=== PATIENT | male | born 1975 | race Caucasian/White ===

== ENCOUNTER 2016-08-10 14:21 | Inpatient (IN) | payer OTHER ==
[2016-08-10 14:46] VITALS: BMI 29.5
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
[2016-08-10] MEDS ORDERED: MAGNESIUM CITRATE 300 ML BOTTLE PO PRN (15:57)
[2016-08-10] MEDS ORDERED: LOPERAMIDE HCL 2 MG CAPSULE PO PRN (15:57)
[2016-08-10] MEDS ORDERED: P-EPHED 60MG/TRIPROLIDI 2.5MG TABLET PO PRN (15:57)
[2016-08-10] MEDS ORDERED: MAGNESIUM HYDROX 2400MG/30ML ORAL SUSPENSION 30 ML CUP PO PRN (15:57)
[2016-08-10] MEDS ORDERED: hydrOXYzine PAMOATE 50 MG CAPSULE (FP) PO PRN (15:57)
[2016-08-10] MEDS ORDERED: NICOTINE POLACRILEX 2 MG GUM BC PRN (15:57)
[2016-08-10] MEDS ORDERED: chlordiazePOXIDE HCL 25 MG CAPSULE PO ONE (15:57)
[2016-08-10] MEDS ORDERED: MENTHOL/PHENOL 1 EACH UD MM PRN (15:57)
[2016-08-10] MEDS ORDERED: guaiFENesin/D-METHORPHAN HB 10 ML UNIT-DOSE CUPS PO PRN (15:57)
[2016-08-10] MEDS ORDERED: chlordiazePOXIDE HCL 25 MG CAPSULE PO PRN (15:57)
[2016-08-10] MEDS ORDERED: ACETAMINOPHEN 325 MG TABLET (FP) PO PRN (15:57)
[2016-08-10] MEDS ORDERED: MAG HYDROX/AL HYDROX/SIMETH 30 ML UNIT-DOSE CUP PO PRN (15:57)
[2016-08-10] MEDS ORDERED: ALBUTEROL SO4 6.7 GM HFA INHALER IH PRN (16:02)
[2016-08-10] MEDS: NIFEdipine E.R. 30 MG TABLET (FP) PO SCH (18:13)
[2016-08-10] MEDS: chlordiazePOXIDE HCL 25 MG CAPSULE PO SCH ×2 (18:13→22:47)
[2016-08-10] MEDS: NICOTINE 21 MG/24 HOURS TOPICAL PATCH TD SCH (18:14)
[2016-08-10] MEDS: RANITIDINE HCL 150 MG TABLET (FP) PO SCH (22:47)
[2016-08-10] MEDS: THIAMINE HCL 100 MG TABLET (FP) PO SCH (22:47)
[2016-08-10] MEDS: diphenhydrAMINE HCL 50 MG CAPSULE PO PRN (22:47)
[2016-08-11] MEDS: chlordiazePOXIDE HCL 25 MG CAPSULE PO SCH ×4 (05:50→22:20)
[2016-08-11] MEDS: PRENATAL VITAMINS W/ FOLIC ACID TABLET (FP) PO SCH (10:13)
[2016-08-11] MEDS: NIFEdipine E.R. 30 MG TABLET (FP) PO SCH (10:13)
[2016-08-11] MEDS: RANITIDINE HCL 150 MG TABLET (FP) PO SCH ×2 (10:13→22:20)
[2016-08-11 10:14] LABS: MCH 31.8 pg (25.7-33.7); MCHC 33.6 g/dl (32.0-35.9); MEAN CELL VOLUME 94.7 fl (80-96); MEAN PLT VOLUME 9.6 fl (7.5-11.1); PLATELET COUNT 278 K/MM3 (134-434); RDW 14.6 % (11.9-15.9); WHITE BLOOD COUNT 6.2 K/mm3 (4.0-10.0)
[2016-08-11] MEDS: NICOTINE 21 MG/24 HOURS TOPICAL PATCH TD SCH (10:14)
[2016-08-11 10:37] LABS: ALBUMIN 3.7 g/dl (3.4-5.0); ALK PHOS 41 U/L (45-117); ANION GAP 10 (8-16); BILIRUBIN,TOTAL 0.3 mg/dL (0.2-1.0); CALCIUM 9.1 mg/dL (8.5-10.1); CO2 26 mmol/L (21-32); CREATININE 0.9 mg/dL (0.7-1.3); GLUCOSE,RANDOM 77 mg/dL (74-106); SGOT/AST 12 U/L (15-37); SGPT/ALT 12 U/L (12-78); TOT PROT 6.6 g/dl (6.4-8.2)
--- NOTE | 2016-08-11 14:27 | PN ---
S CIWA - CIWA Score Nausea/Vomitin Muscle Tremors: 4-Moderate,w/Arms Extend Anxiety: 4-Mod. Anxious/Guarded Agitation: 4-Moderately Restless Paroxysmal Sweats: No Perspiration Orientation: 0-Oriented Tacttile Disturbances: 0-None Auditory Disturbances: 0-None Visual Disturbances: 0-None Headache: 2-Mild CIWA-Ar Total Score: 17 BHS Progress Note (SOAP) Subjective: Tremor, sweating, interrupted sleep, anxious, nausea Objective: 08/11/16 14:26 Last Vital Signs Temp Pulse Resp BP Pulse Ox 95.4 F L 84 18 112/71 08/11/16 09:24 08/11/16 09:24 08/11/16 09:24 08/11/16 09:24 Laboratory Tests 08/11/16 08/11/16 08/11/16 07:50 07:50 07:50 WBC 6.2 RBC 4.75 Hgb 15.1 Hct 44.9 MCV 94.7 MCHC 33.6 RDW 14.6 Plt Count 278 MPV 9.6 Sodium 143 Potassium 4.4 Chloride 107 Carbon Dioxide 26 Anion Gap 10 BUN 9 Creatinine 0.9 Creat Clearance w eGFR > 60 Random Glucose 77 Calcium 9.1 Total Bilirubin 0.3 AST 12 L ALT 12 Alkaline Phosphatase 41 L Total Protein 6.6 Albumin 3.7 RPR Titer Nonreactive Labs noted Assessment: 08/11/16 14:26 Withdrawal symptoms Plan: Continue detox
[2016-08-11] MEDS: diphenhydrAMINE HCL 50 MG CAPSULE PO PRN (22:20)
[2016-08-11] MEDS: THIAMINE HCL 100 MG TABLET (FP) PO SCH (22:20)
[2016-08-11 23:53] LABS: URINE APPEARANCE TURBID; URINE BILIRUBIN NEGATIVE (NEGATIVE); URINE BLOOD NEGATIVE (NEGATIVE); URINE COLOR YELLOW; URINE GLUCOSE (UA) NEGATIVE (NEGATIVE); URINE KETONE NEGATIVE (NEGATIVE); URINE LEUK ESTERASE NEGATIVE (NEGATIVE); URINE NITRITE NEGATIVE (NEGATIVE); URINE PROTEIN NEGATIVE (NEGATIVE); URINE UROBILINOGEN NEGATIVE E.U./dl (0.2-1.0)
[2016-08-12] MEDS: chlordiazePOXIDE HCL 25 MG CAPSULE PO SCH ×2 (05:50→10:28)
[2016-08-12] MEDS: PRENATAL VITAMINS W/ FOLIC ACID TABLET (FP) PO SCH (10:28)
[2016-08-12] MEDS: NICOTINE 21 MG/24 HOURS TOPICAL PATCH TD SCH (10:28)
[2016-08-12] MEDS: NIFEdipine E.R. 30 MG TABLET (FP) PO SCH (10:28)
[2016-08-12] MEDS: RANITIDINE HCL 150 MG TABLET (FP) PO SCH ×2 (10:28→22:33)
--- NOTE | 2016-08-12 10:36 | PN ---
S CIWA - CIWA Score Nausea/Vomitin-No Nausea/No Vomiting Muscle Tremors: 4-Moderate,w/Arms Extend Anxiety: 4-Mod. Anxious/Guarded Agitation: 3 Paroxysmal Sweats: 3 Orientation: 0-Oriented Tacttile Disturbances: 0-None Auditory Disturbances: 0-None Visual Disturbances: 0-None Headache: 0-None Present CIWA-Ar Total Score: 14 BHS Progress Note (SOAP) Subjective: Anxiety,tremorsd,sweating,interrupted sleep,restless Objective: 08/12/16 10:35 Vital Signs - 8 hr 08/12/16 08/12/16 08/12/16 03:29 06:22 10:08 Temperature 97.4 F L 95.8 F L Pulse Rate 78 86 Respiratory 18 16 20 Rate Blood Pressure 110/79 115/80 Laboratory Tests 08/11/16 08/11/16 08/11/16 07:50 07:50 07:50 WBC 6.2 RBC 4.75 Hgb 15.1 Hct 44.9 MCV 94.7 MCHC 33.6 RDW 14.6 Plt Count 278 MPV 9.6 Sodium 143 Potassium 4.4 Chloride 107 Carbon Dioxide 26 Anion Gap 10 BUN 9 Creatinine 0.9 Creat Clearance w eGFR > 60 Random Glucose 77 Calcium 9.1 Total Bilirubin 0.3 AST 12 L ALT 12 Alkaline Phosphatase 41 L Total Protein 6.6 Albumin 3.7 Urine Color Urine Appearance Urine pH Ur Specific [place] Urine Protein Urine Glucose (UA) Urine Ketones Urine Blood Urine Nitrite Urine Bilirubin Urine Urobilinogen Ur Leukocyte Esterase RPR Titer Nonreactive 08/11/16 22:15 WBC RBC Hgb Hct MCV MCHC RDW Plt Count MPV Sodium Potassium Chloride Carbon Dioxide Anion Gap BUN Creatinine Creat Clearance w eGFR Random Glucose Calcium Total Bilirubin AST ALT Alkaline Phosphatase Total Protein Albumin Urine Color Yellow Urine Appearance Turbid Urine pH 7.0 Ur Specific [place] 1.014 Urine Protein Negative Urine Glucose (UA) Negative Urine Ketones Negative Urine Blood Negative Urine Nitrite Negative Urine Bilirubin Negative Urine Urobilinogen Negative Ur Leukocyte Esterase Negative RPR Titer labs noted Assessment: 08/12/16 10:35 withdrawal sx. Plan: continue detox
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
[2016-08-12] MEDS ORDERED: HYDROCORTISONE 1% TOPICAL CREAM 30 GM TUBE TP PRN (16:12)
--- NOTE | 2016-08-12 16:15 | PN ---
BHS Progress Note Note: C/O ITCHY RASH ON CORNERS OF NOSE AND EYEBROW HYDROCORTIZONE CREAM 1% APPLY BID PRN
--- NOTE | 2016-08-12 16:22 | EKG ---
Test Reason : Blood Pressure : / mmHG Vent. Rate : 080 BPM Atrial Rate : 080 BPM P-R Int : 130 ms QRS Dur : 092 ms QT Int : 410 ms P-R-T Axes : 065 070 050 degrees QTc Int : 472 ms NORMAL SINUS RHYTHM POSSIBLE LEFT ATRIAL ENLARGEMENT BORDERLINE ECG NO PREVIOUS ECGS AVAILABLE Confirmed by LAUREEN MORA, SIERRA ([id number]) on 08/12/2016 4:22:04 PM Referred By: Confirmed By:SIERRA GARDUNO MD
[2016-08-12] MEDS: chlordiazePOXIDE 5 MG CAPSULE PO SCH ×2 (17:31→23:02)
[2016-08-12] MEDS: IBUPROFEN 400 MG TABLET (FP) PO PRN (19:42)
[2016-08-12] MEDS: THIAMINE HCL 100 MG TABLET (FP) PO SCH (22:33)
[2016-08-12] MEDS: QUEtiapine FUMARATE 100 MG TABLET (FP) PO SCH (22:33)
[2016-08-12] MEDS: DIVALPROEX SODIUM 250 MG TABLET E.C. (FP) PO SCH (22:33)
[2016-08-12] MEDS: OLANZapine 10 MG TABLET PO SCH (22:33)
[2016-08-13] MEDS: chlordiazePOXIDE 5 MG CAPSULE PO SCH ×2 (06:02→10:41)
[2016-08-13] MEDS: PRENATAL VITAMINS W/ FOLIC ACID TABLET (FP) PO SCH (10:41)
[2016-08-13] MEDS: DIVALPROEX SODIUM 250 MG TABLET E.C. (FP) PO SCH ×2 (10:41→22:42)
[2016-08-13] MEDS: RANITIDINE HCL 150 MG TABLET (FP) PO SCH ×2 (10:41→22:42)
[2016-08-13] MEDS: NICOTINE 21 MG/24 HOURS TOPICAL PATCH TD SCH (10:41)
[2016-08-13] MEDS: NIFEdipine E.R. 30 MG TABLET (FP) PO SCH (10:41)
--- NOTE | 2016-08-13 11:09 | PN ---
BHS Progress Note (SOAP) Subjective: ANXIETY,SWEATS,TREMORS,INTERMITTENT SLEEP Objective: 08/13/16 11:08 Vital Signs Temperature 96 F L 08/13/16 06:30 Pulse Rate 83 08/13/16 09:48 Respiratory Rate 18 08/13/16 09:48 Blood Pressure 107/73 08/13/16 09:48 O2 Sat by Pulse Oximetry (%) Assessment: 08/13/16 11:09 WITHDRAWAL SX Plan: CONTINUE DETOX
[2016-08-13] MEDS: chlordiazePOXIDE HCL 10 MG CAPSULE PO SCH ×2 (17:38→22:41)
[2016-08-13] MEDS: IBUPROFEN 400 MG TABLET (FP) PO PRN (19:25)
[2016-08-13] MEDS: THIAMINE HCL 100 MG TABLET (FP) PO SCH (22:41)
[2016-08-13] MEDS: OLANZapine 10 MG TABLET PO SCH (22:42)
[2016-08-13] MEDS: QUEtiapine FUMARATE 100 MG TABLET (FP) PO SCH (22:42)
[2016-08-14] MEDS: chlordiazePOXIDE HCL 10 MG CAPSULE PO SCH ×2 (05:59→10:26)
[2016-08-14] MEDS: PRENATAL VITAMINS W/ FOLIC ACID TABLET (FP) PO SCH (10:26)
[2016-08-14] MEDS: DIVALPROEX SODIUM 250 MG TABLET E.C. (FP) PO SCH (10:27)
[2016-08-14] MEDS: NIFEdipine E.R. 30 MG TABLET (FP) PO SCH (10:27)
[2016-08-14] MEDS: NICOTINE 21 MG/24 HOURS TOPICAL PATCH TD SCH (10:27)
[2016-08-14] MEDS: RANITIDINE HCL 150 MG TABLET (FP) PO SCH (10:27)
--- NOTE | 2016-08-14 11:56 | DS ---
[facility] Detox Discharge Summary Admission Date: 08/10/16 Discharge Date: 08/14/16 - History Present History: Alcohol Dependence, Cocaine Dependence Additional Comments: DETOX COMPLETED. ALERT O X 3. NAD. REFERRED TO REHAB. Pertinent Past History: HTN ASTHMA GERD HYPERLIPIDEMIA SCHIZOPHRENIA - Physical Exam Results Vital Signs: Vital Signs Temperature 98.6 F 08/14/16 10:08 Pulse Rate 87 08/14/16 10:08 Respiratory Rate 18 08/14/16 10:08 Blood Pressure 107/71 08/14/16 10:08 O2 Sat by Pulse Oximetry (%) Pertinent Admission Physical Exam Findings: WITHDRAWAL SX Laboratory Last Values WBC 6.2 K/mm3 (4.0-10.0) 08/11/16 07:50 RBC 4.75 M/mm3 (4.00-5.60) 08/11/16 07:50 Hgb 15.1 GM/dL (11.7-16.9) 08/11/16 07:50 Hct 44.9 % (35.4-49) 08/11/16 07:50 MCV 94.7 fl (80-96) 08/11/16 07:50 MCHC 33.6 g/dl (32.0-35.9) 08/11/16 07:50 RDW 14.6 % (11.9-15.9) 08/11/16 07:50 Plt Count 278 K/MM3 (134-434) 08/11/16 07:50 MPV 9.6 fl (7.5-11.1) 08/11/16 07:50 Sodium 143 mmol/L (136-145) 08/11/16 07:50 Potassium 4.4 mmol/L (3.5-5.1) 08/11/16 07:50 Chloride 107 mmol/L (98-107) 08/11/16 07:50 Carbon Dioxide 26 mmol/L (21-32) 08/11/16 07:50 Anion Gap 10 (8-16) 08/11/16 07:50 BUN 9 mg/dL (7-18) 08/11/16 07:50 Creatinine 0.9 mg/dL (0.7-1.3) 08/11/16 07:50 Creat Clearance w eGFR > 60 (>60) 08/11/16 07:50 Random Glucose 77 mg/dL (74-106) 08/11/16 07:50 Calcium 9.1 mg/dL (8.5-10.1) 08/11/16 07:50 Total Bilirubin 0.3 mg/dL (0.2-1.0) 08/11/16 07:50 AST 12 U/L (15-37) L 08/11/16 07:50 ALT 12 U/L (12-78) 08/11/16 07:50 Alkaline Phosphatase 41 U/L (45-117) L 08/11/16 07:50 Total Protein 6.6 g/dl (6.4-8.2) 08/11/16 07:50 Albumin 3.7 g/dl (3.4-5.0) 08/11/16 07:50 Urine Color Yellow 08/11/16 22:15 Urine Appearance Turbid 08/11/16 22:15 Urine pH 7.0 (5.0-8.0) 08/11/16 22:15 Ur Specific [place] 1.014 (1.001-1.035) 08/11/16 22:15 Urine Protein Negative (NEGATIVE) 08/11/16 22:15 Urine Glucose (UA) Negative (NEGATIVE) 08/11/16 22:15 Urine Ketones Negative (NEGATIVE) 08/11/16 22:15 Urine Blood Negative (NEGATIVE) 08/11/16 22:15 Urine Nitrite Negative (NEGATIVE) 08/11/16 22:15 Urine Bilirubin Negative (NEGATIVE) 08/11/16 22:15 Urine Urobilinogen Negative E.U./dl (0.2-1.0) 08/11/16 22:15 Ur Leukocyte Esterase Negative (NEGATIVE) 08/11/16 22:15 Valproic Acid 19.882 ug/ml (50-100) L 08/13/16 07:00 RPR Titer Nonreactive (NONREACTIVE) 08/11/16 07:50 - Treatment Hospital Course: Detox Protocol Followed, Detoxed Safely, Responded well, Discharged Condition Good, Rehab Referral Accepted Patient has Accepted a Rehab Referral to: [facility] [place] - Medication Discharge Medications: Ambulatory Orders Divalproex [Depakote -] 250 mg PO BID 08/10/16 Ibuprofen [Motrin -] 400 mg PO DAILY 08/10/16 Nifedipine [Procardia Capsule -] 20 mg PO DAILY 08/10/16 Olanzapine [Zyprexa -] 10 mg PO HS 08/10/16 Quetiapine Fumarate [Seroquel -] 400 mg PO HS 08/10/16 Ranitidine HCl [Heartburn Relief] 75 mg PO DAILY 08/10/16 - Diagnosis (1) Alcohol dependence with uncomplicated withdrawal Current Visit: Yes Status: Acute (2) Cocaine dependence, uncomplicated Current Visit: Yes Status: Acute (3) Nicotine dependence Current Visit: Yes Status: Acute Qualifiers: Nicotine product type: cigarettes Substance use status: uncomplicated Qualified Code(s): F17.210 - Nicotine dependence, cigarettes, uncomplicated (4) Asthma Current Visit: Yes Status: Chronic Qualifiers: Asthma severity: mild intermittent Asthma complication type: uncomplicated Qualified Code(s): J45.20 - Mild intermittent asthma, uncomplicated (5) GERD (gastroesophageal reflux disease) Current Visit: Yes Status: Chronic Qualifiers: Esophagitis presence: without esophagitis Qualified Code(s): K21.9 - Gastro-esophageal reflux disease without esophagitis (6) HTN (hypertension) Current Visit: Yes Status: Chronic Qualifiers: Hypertension type: essential hypertension Qualified Code(s): I10 - Essential (primary) hypertension (7) Hyperlipemia Current Visit: Yes Status: Chronic (8) Insomnia Current Visit: Yes Status: Acute (9) Substance induced mood disorder Current Visit: Yes Status: Acute (10) Schizophrenia Current Visit: Yes Status: Chronic - AMA Did Patient Leave Against Medical Advice: No
[2016-08-14 13:39] VITALS: BP 119/77; PULSE 85; TEMP 97.7
== END 2016-08-14 15:50 | disposition other institution (70) | DRG 774 ==
LOC: YASAS 14:21 → Y3N 15:27
PROVIDERS: ADMIT Internal Medicine; ATTEND Internal Medicine
PROC: HZ2ZZZZ Detoxification Services for Substance Abuse Treatment (ICD-10-PCS; principal; 2016-08-14)
DX: F10.230 Alcohol dependence with withdrawal, uncomplicated (principal); F14.20 Cocaine dependence, uncomplicated; F17.210 Nicotine dependence, cigarettes, uncomplicated; F19.24 Other psychoactive substance dependence with psychoactive substance-induced mood disorder; F20.0 Paranoid schizophrenia; G47.00 Insomnia, unspecified; E78.5 Hyperlipidemia, unspecified; I10 Essential (primary) hypertension; J45.20 Mild intermittent asthma, uncomplicated; K21.9 Gastro-esophageal reflux disease without esophagitis
CPT/HCPCS: 36415; 80053; 80164; 81003; 85027; 86593; 93005; 93010

== ENCOUNTER 2016-08-14 15:19 | Inpatient (IN) | payer OTHER ==
[2016-08-14] MEDS ORDERED: MENTHOL/PHENOL 1 EACH UD MM PRN (16:14)
[2016-08-14] MEDS ORDERED: P-EPHED 60MG/TRIPROLIDI 2.5MG TABLET PO PRN (16:14)
[2016-08-14] MEDS ORDERED: MAG HYDROX/AL HYDROX/SIMETH 30 ML UNIT-DOSE CUP PO PRN (16:14)
[2016-08-14] MEDS ORDERED: NICOTINE 14 MG/24 HOURS TOPICAL PATCH TD PRN (16:14)
[2016-08-14] MEDS ORDERED: hydrOXYzine PAMOATE 50 MG CAPSULE (FP) PO PRN (16:14)
[2016-08-14] MEDS ORDERED: MAGNESIUM HYDROX 2400MG/30ML ORAL SUSPENSION 30 ML CUP PO PRN (16:14)
[2016-08-14] MEDS ORDERED: guaiFENesin/D-METHORPHAN HB 10 ML UNIT-DOSE CUPS PO PRN (16:14)
[2016-08-14] MEDS ORDERED: NICOTINE POLACRILEX 2 MG GUM BUC PRN (16:14)
[2016-08-14] MEDS ORDERED: LOPERAMIDE HCL 2 MG CAPSULE PO PRN (16:14)
[2016-08-14] MEDS ORDERED: MAGNESIUM CITRATE 300 ML BOTTLE PO PRN (16:14)
--- NOTE | 2016-08-14 16:14 | HP ---
[facility] Rehab Assess/Revision - Admission History Admitted to Rehab from: [facility] [place] Date of Admission to Rehab: 08/14/16 - Findings Detox History & Physical reviewed: Yes Concur with findings: Yes Comments/Additional Findings: TRANSFERRED FROM DETOX TO REHAB
[2016-08-14] MEDS ORDERED: ALBUTEROL SO4 6.7 GM HFA INHALER IH PRN (16:18)
[2016-08-14 18:15] VITALS: BMI 29.5
--- NOTE | 2016-08-14 18:36 | PN ---
[facility] Progress Note Note: Psychiatry Attending-operations systems specialist note : Called by nurse in charge to enter orders for medications. Patient is already known to this physician underwriter.Transferred from [address] [place] [address]. Medications reconciled. zyprexa 10 mg po hs seroquel 200 mg po hs (from 100 mg/hs) depakote 250 mg po bid Housestaff psychiatrist will follow in AM. Discussed with nurse.
[2016-08-14] MEDS: DIVALPROEX SODIUM 250 MG TABLET E.C. (FP) PO SCH (21:52)
[2016-08-14] MEDS: THIAMINE HCL 100 MG TABLET (FP) PO SCH (21:52)
[2016-08-14] MEDS: OLANZapine 10 MG TABLET PO SCH (21:52)
[2016-08-14] MEDS: QUEtiapine FUMARATE 200 MG TABLET PO SCH (21:52)
[2016-08-14] MEDS: diphenhydrAMINE HCL 50 MG CAPSULE PO PRN (21:53)
[2016-08-15] MEDS: DIVALPROEX SODIUM 250 MG TABLET E.C. (FP) PO SCH ×2 (09:35→21:16)
[2016-08-15] MEDS: PRENATAL VITAMINS W/ FOLIC ACID TABLET (FP) PO SCH (09:35)
[2016-08-15] MEDS: NIFEdipine E.R. 30 MG TABLET (FP) PO SCH (09:36)
[2016-08-15 11:54] LABS: HIV 1 & 2 AB NEGATIVE; HIV 1 AGp24 NEGATIVE
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
[2016-08-15] MEDS: IBUPROFEN 400 MG TABLET (FP) PO PRN (15:17)
[2016-08-15] MEDS: OLANZapine 10 MG TABLET PO SCH (21:16)
[2016-08-15] MEDS: QUEtiapine FUMARATE 200 MG TABLET PO SCH (21:16)
[2016-08-15] MEDS: THIAMINE HCL 100 MG TABLET (FP) PO SCH (21:16)
[2016-08-16] MEDS: PRENATAL VITAMINS W/ FOLIC ACID TABLET (FP) PO SCH (10:24)
[2016-08-16] MEDS: IBUPROFEN 400 MG TABLET (FP) PO PRN (10:24)
[2016-08-16] MEDS: NIFEdipine E.R. 30 MG TABLET (FP) PO SCH (10:24)
[2016-08-16] MEDS: DIVALPROEX SODIUM 250 MG TABLET E.C. (FP) PO SCH ×2 (10:24→21:49)
[2016-08-16] MEDS: ACETAMINOPHEN 325 MG TABLET (FP) PO PRN (17:02)
[2016-08-16] MEDS: OLANZapine 10 MG TABLET PO SCH (21:49)
[2016-08-16] MEDS: THIAMINE HCL 100 MG TABLET (FP) PO SCH (21:49)
[2016-08-16] MEDS: QUEtiapine FUMARATE 200 MG TABLET PO SCH (21:49)
[2016-08-17] MEDS: IBUPROFEN 600 MG TABLET (FP) PO PRN (02:25)
[2016-08-17] MEDS: PRENATAL VITAMINS W/ FOLIC ACID TABLET (FP) PO SCH (10:06)
[2016-08-17] MEDS: DIVALPROEX SODIUM 250 MG TABLET E.C. (FP) PO SCH ×2 (10:06→21:21)
[2016-08-17] MEDS: NIFEdipine E.R. 30 MG TABLET (FP) PO SCH (10:06)
[2016-08-17] MEDS: ACETAMINOPHEN 325 MG TABLET (FP) PO PRN ×2 (10:07→19:47)
[2016-08-17] MEDS: THIAMINE HCL 100 MG TABLET (FP) PO SCH (21:21)
[2016-08-17] MEDS: QUEtiapine FUMARATE 200 MG TABLET PO SCH (21:21)
[2016-08-17] MEDS: OLANZapine 10 MG TABLET PO SCH (21:21)
[2016-08-17] MEDS: diphenhydrAMINE HCL 50 MG CAPSULE PO PRN (21:22)
[2016-08-18] MEDS: ACETAMINOPHEN 325 MG TABLET (FP) PO PRN ×3 (04:29→21:47)
[2016-08-18] MEDS: PRENATAL VITAMINS W/ FOLIC ACID TABLET (FP) PO SCH (10:17)
[2016-08-18] MEDS: DIVALPROEX SODIUM 250 MG TABLET E.C. (FP) PO SCH ×2 (10:17→21:48)
[2016-08-18] MEDS: NIFEdipine E.R. 30 MG TABLET (FP) PO SCH (10:17)
[2016-08-18] MEDS: QUEtiapine FUMARATE 200 MG TABLET PO SCH (21:48)
[2016-08-18] MEDS: THIAMINE HCL 100 MG TABLET (FP) PO SCH (21:48)
[2016-08-18] MEDS: diphenhydrAMINE HCL 50 MG CAPSULE PO PRN (21:48)
[2016-08-18] MEDS: OLANZapine 10 MG TABLET PO SCH (21:48)
[2016-08-19] MEDS: ACETAMINOPHEN 325 MG TABLET (FP) PO PRN ×2 (10:06→20:17)
[2016-08-19] MEDS: PRENATAL VITAMINS W/ FOLIC ACID TABLET (FP) PO SCH (10:06)
[2016-08-19] MEDS: DIVALPROEX SODIUM 250 MG TABLET E.C. (FP) PO SCH ×2 (10:06→21:23)
[2016-08-19] MEDS: NIFEdipine E.R. 30 MG TABLET (FP) PO SCH (10:06)
[2016-08-19] MEDS: THIAMINE HCL 100 MG TABLET (FP) PO SCH (21:22)
[2016-08-19] MEDS: QUEtiapine FUMARATE 200 MG TABLET PO SCH (21:22)
[2016-08-19] MEDS: OLANZapine 10 MG TABLET PO SCH (21:22)
[2016-08-19] MEDS: IBUPROFEN 600 MG TABLET (FP) PO PRN (21:22)
[2016-08-20] MEDS: PRENATAL VITAMINS W/ FOLIC ACID TABLET (FP) PO SCH (10:17)
[2016-08-20] MEDS: DIVALPROEX SODIUM 250 MG TABLET E.C. (FP) PO SCH ×2 (10:19→21:04)
[2016-08-20] MEDS: NIFEdipine E.R. 30 MG TABLET (FP) PO SCH (10:19)
[2016-08-20] MEDS: IBUPROFEN 600 MG TABLET (FP) PO PRN ×2 (10:20→21:04)
[2016-08-20] MEDS: THIAMINE HCL 100 MG TABLET (FP) PO SCH (21:04)
[2016-08-20] MEDS: OLANZapine 10 MG TABLET PO SCH (21:04)
[2016-08-20] MEDS: QUEtiapine FUMARATE 200 MG TABLET PO SCH (21:04)
[2016-08-20] MEDS: diphenhydrAMINE HCL 50 MG CAPSULE PO PRN (22:14)
[2016-08-20] MEDS: ACETAMINOPHEN 325 MG TABLET (FP) PO PRN (22:15)
[2016-08-21] MEDS: ACETAMINOPHEN 325 MG TABLET (FP) PO PRN ×2 (09:06→22:30)
[2016-08-21] MEDS: NIFEdipine E.R. 30 MG TABLET (FP) PO SCH (09:06)
[2016-08-21] MEDS: DIVALPROEX SODIUM 250 MG TABLET E.C. (FP) PO SCH ×2 (09:06→21:37)
[2016-08-21] MEDS: PRENATAL VITAMINS W/ FOLIC ACID TABLET (FP) PO SCH (09:06)
--- NOTE | 2016-08-21 14:42 | PN ---
BHS Progress Note (SOAP) Subjective: tooth ache Objective: 08/21/16 14:40 Vital Signs Temperature 97.4 F L 08/21/16 06:46 Pulse Rate 110 H 08/21/16 10:03 Respiratory Rate 18 08/21/16 10:03 Blood Pressure 128/96 08/21/16 10:03 O2 Sat by Pulse Oximetry (%) left lower molar pain , Assessment: 08/21/16 14:41 molar toothache Plan: amoxicillin 500mg tid v. lidocaine motrin prn
[2016-08-21] MEDS: THIAMINE HCL 100 MG TABLET (FP) PO SCH (21:37)
[2016-08-21] MEDS: AMOXICILLIN 500 MG CAPSULE (FP) PO SCH (21:38)
[2016-08-21] MEDS: OLANZapine 10 MG TABLET PO SCH (21:38)
[2016-08-21] MEDS: QUEtiapine FUMARATE 200 MG TABLET PO SCH (21:38)
[2016-08-21] MEDS: LIDOCAINE VISCOUS 2% ORAL/TOP 20 ML UNIT-DOSE CUP MM PRN (21:38)
[2016-08-21] MEDS: diphenhydrAMINE HCL 50 MG CAPSULE PO PRN (21:38)
[2016-08-22] MEDS: AMOXICILLIN 500 MG CAPSULE (FP) PO SCH ×3 (06:55→21:10)
[2016-08-22] MEDS: IBUPROFEN 600 MG TABLET (FP) PO PRN ×3 (07:10→21:53)
[2016-08-22] MEDS: DIVALPROEX SODIUM 250 MG TABLET E.C. (FP) PO SCH ×2 (09:55→21:10)
[2016-08-22] MEDS: PRENATAL VITAMINS W/ FOLIC ACID TABLET (FP) PO SCH (09:56)
[2016-08-22] MEDS: NIFEdipine E.R. 30 MG TABLET (FP) PO SCH (09:56)
[2016-08-22] MEDS: THIAMINE HCL 100 MG TABLET (FP) PO SCH (21:10)
[2016-08-22] MEDS: OLANZapine 10 MG TABLET PO SCH (21:10)
[2016-08-22] MEDS: QUEtiapine FUMARATE 200 MG TABLET PO SCH (21:10)
[2016-08-22] MEDS: LIDOCAINE VISCOUS 2% ORAL/TOP 20 ML UNIT-DOSE CUP MM PRN (21:12)
[2016-08-23] MEDS: AMOXICILLIN 500 MG CAPSULE (FP) PO SCH (06:50)
--- NOTE | 2016-08-23 06:58 | PN ---
Psychiatric Progress Note Vital Signs: Vital Signs Period Temp Pulse Resp BP Sys/Graham Pulse Ox Last 24 Hr 102 16-18 136/78 Date of Session: 08/23/16 Chief Complaint:: Psychiatrist Discharge Note HPI: Patient addressing Alcohol and Cocaine Dependence comorbid with Nicotine Dependence and Schizophrenia ROS: Asthma, GERD, HTN and Hyperlipidemia were medically managed Current Medications: Active Medications Generic Name Dose Route Start Last Admin Trade Name Freq PRN Reason Stop Dose Admin Acetaminophen 650 mg 08/14/16 16:14 08/21/16 22:30 Tylenol - PO 650 mg Q4H PRN Administration FEVER OR PAIN Al Hydroxide/Mg Hydroxide 30 ml 08/14/16 16:14 Mylanta Oral Suspension - PO Q6H PRN DYSPEPSIA Albuterol Sulfate 2 puff 08/14/16 16:18 Ventolin Hfa Inhaler - IH Q4H PRN SHORT OF BREATH/WHEEZING Amoxicillin 500 mg 08/21/16 22:00 08/22/16 21:10 Amoxicillin - PO 500 mg TID ZAKIA Administration Diphenhydramine HCl 50 mg 08/14/16 16:14 08/21/16 21:38 Benadryl - PO 50 mg HSMR1 PRN Administration FOR ITCHING Divalproex Sodium 250 mg 08/14/16 22:00 08/22/16 21:10 Depakote - PO 250 mg BID ZAKIA Administration Eucalyptus/Menthol/Phenol/Sorbitol 1 each 08/14/16 16:14 Cepastat Lozenge - MM Q4H PRN SORE THROAT Guaifenesin 10 ml 08/14/16 16:14 Robitussin Dm - PO Q6H PRN COUGH Hydroxyzine Pamoate 50 mg 08/14/16 16:14 Vistaril - PO Q4H PRN AGITATION Ibuprofen 600 mg 08/16/16 15:28 08/22/16 21:53 Motrin - PO 600 mg Q6H PRN Administration PAIN Lidocaine HCl 20 ml 08/21/16 14:39 08/22/16 21:12 Xylocaine 2% Viscous Oral - MM 20 ml Q6HPO PRN Administration ORAL PAIN/MOUTH SORES Loperamide HCl 4 mg 08/14/16 16:14 Imodium - PO Q6H PRN DIARRHEA Magnesium Hydroxide 30 ml 08/14/16 16:14 Milk Of Magnesia - PO DAILY PRN CONSTIPATION Nicotine 14 mg 08/14/16 16:14 Nicoderm Patch - TD DAILY PRN WITHDRAWAL(CONT SUBST) Nicotine Polacrilex 2 mg 08/14/16 16:14 Nicorette Gum - BUC Q2H PRN NICOTINE REPLACEMENT RX Nifedipine 30 mg 08/15/16 10:00 08/22/16 09:56 Procardia Xl - PO 30 mg DAILY ZAKIA Administration Olanzapine 10 mg 08/14/16 22:00 08/22/16 21:10 Zyprexa - PO 10 mg HS ZAKIA Administration Multivit/Folic Acid/Iron 1 tab 08/15/16 10:00 08/22/16 09:56 Vitamins (Sjr) - PO 1 tab DAILY ZAKIA Administration Pseudoephedrine/Triprolidine 1 combo 08/14/16 16:14 Actifed - PO TID PRN NASAL CONGESTION Quetiapine Fumarate 200 mg 08/14/16 22:00 08/22/16 21:10 Seroquel - PO 200 mg HS ZAKIA Administration Thiamine HCl 100 mg 08/14/16 22:00 08/22/16 21:10 Vitamin B1 - PO 100 mg HS ZAKIA Administration Current Side Effect: No Lab tests ordered: Yes Lab tests reviewed: Yes Provider note:: Patient has completed this program today. He has met his treatment goals and will continue to address his issues in outpatient treatment at [facility] at [address] [place] [address]. He verbalized understanding of the negative consequences of his addiction and from his participation in this program, he has learned the importance of establishing a sober network in order to maintain sobriety. He responded well to Depakote 250 mg po BID, Seroquel 200 mg po HS and Zyprexa 10 mg po HS. Scripts for 30 days supply of these medications are electronically transmitted to [facility] at [address] [place] [address]. He is stable for discharge today Total face to face time:: 35 Mental Status Exam - Mental Status Exam Alert and Oriented to: Time, Place, Person Cognitive Function: Fair Patient Appearance: Well Groomed Mood: Hopeful, Euthymic Affect: Appropriate Patient Behavior: Cooperative Speech Pattern: Clear Voice Loudness: Normal, Limited Variation Thought Disorder: Not Present Hallucinations: Denies Suicidal Ideation: Denies Homicidal Ideation: Denies Insight/Judgement: Fair Sleep: Fair Appetite: Good Muscle strength/Tone: Normal Gait/Station: Normal Psychiatric Treatment Plan - Problem List (1) Alcohol dependence Current Visit: Yes (2) Cocaine dependence Current Visit: Yes (3) Nicotine dependence Current Visit: No Qualifiers: Nicotine product type: cigarettes Substance use status: uncomplicated Qualified Code(s): F17.210 - Nicotine dependence, cigarettes, uncomplicated (4) Schizophrenia Current Visit: No Comment: Self-report. (5) Asthma Current Visit: No Qualifiers: Asthma severity: mild intermittent Asthma complication type: uncomplicated Qualified Code(s): J45.20 - Mild intermittent asthma, uncomplicated (6) GERD (gastroesophageal reflux disease) Current Visit: No Qualifiers: Esophagitis presence: without esophagitis Qualified Code(s): K21.9 - Gastro-esophageal reflux disease without esophagitis (7) HTN (hypertension) Current Visit: No Qualifiers: Hypertension type: essential hypertension Qualified Code(s): I10 - Essential (primary) hypertension (8) Hyperlipemia Current Visit: No Initial treatment plan: Patient is discharged today [facility]
[2016-08-23 07:04] VITALS: BP 106/71; PULSE 97; TEMP 98.1
[2016-08-23] MEDS: IBUPROFEN 600 MG TABLET (FP) PO PRN (07:28)
[2016-08-23] MEDS: NIFEdipine E.R. 30 MG TABLET (FP) PO SCH (09:20)
[2016-08-23] MEDS: DIVALPROEX SODIUM 250 MG TABLET E.C. (FP) PO SCH (09:20)
[2016-08-23] MEDS: PRENATAL VITAMINS W/ FOLIC ACID TABLET (FP) PO SCH (09:21)
== END 2016-08-23 09:30 | disposition home or self-care (01) | DRG 772 ==
LOC: YASAS 15:19 → Y3W 15:20
PROVIDERS: ADMIT Psychiatry & Neurology Psychiatry; ATTEND Psychiatry & Neurology Psychiatry
PROC: HZ42ZZZ Group Counseling for Substance Abuse Treatment, Cognitive-Behavioral (ICD-10-PCS; principal; 2016-08-23)
DX: F10.20 Alcohol dependence, uncomplicated (principal); F17.210 Nicotine dependence, cigarettes, uncomplicated; F20.9 Schizophrenia, unspecified; I10 Essential (primary) hypertension; J45.20 Mild intermittent asthma, uncomplicated; K21.9 Gastro-esophageal reflux disease without esophagitis; E78.5 Hyperlipidemia, unspecified
CPT/HCPCS: 36415; 87389

== ENCOUNTER 2017-02-06 10:16 | Inpatient (IN) | payer OTHER ==
[2017-02-06 11:01] VITALS: BMI 26.7
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
[2017-02-06] MEDS ORDERED: LOPERAMIDE HCL 2 MG CAPSULE PO PRN (12:07)
[2017-02-06] MEDS ORDERED: hydrOXYzine PAMOATE 25 MG CAPSULE (FP) PO PRN (12:07)
[2017-02-06] MEDS ORDERED: MENTHOL/PHENOL 1 EACH UD MM PRN (12:07)
[2017-02-06] MEDS ORDERED: MAGNESIUM HYDROX 2400MG/30ML ORAL SUSPENSION 30 ML CUP PO PRN (12:07)
[2017-02-06] MEDS ORDERED: guaiFENesin/D-METHORPHAN HB 10 ML UNIT-DOSE CUPS PO PRN (12:07)
[2017-02-06] MEDS ORDERED: chlordiazePOXIDE HCL 25 MG CAPSULE PO PRN (12:07)
[2017-02-06] MEDS ORDERED: diphenhydrAMINE HCL 50 MG CAPSULE PO PRN (12:07)
[2017-02-06] MEDS ORDERED: NICOTINE POLACRILEX 4 MG GUM BUC PRN (12:07)
[2017-02-06] MEDS ORDERED: MAGNESIUM CITRATE 300 ML BOTTLE PO PRN (12:07)
[2017-02-06] MEDS ORDERED: MAG HYDROX/AL HYDROX/SIMETH 30 ML UNIT-DOSE CUP PO PRN (12:07)
[2017-02-06] MEDS ORDERED: P-EPHED 60MG/TRIPROLIDI 2.5MG TABLET PO PRN (12:07)
[2017-02-06] MEDS ORDERED: ALBUTEROL SO4 6.7 GM HFA INHALER IH PRN (12:10)
[2017-02-06] MEDS ORDERED: chlordiazePOXIDE HCL 25 MG CAPSULE PO ONE (12:19)
[2017-02-06] MEDS: NICOTINE 21 MG/24 HOURS TOPICAL PATCH TD SCH (13:55)
[2017-02-06 14:15] LABS: MCH 30.9 pg (25.7-33.7); MCHC 33.7 g/dl (32.0-35.9); MEAN CELL VOLUME 91.6 fl (80-96); MEAN PLT VOLUME 9.2 fl (7.5-11.1); PLATELET COUNT 365 K/MM3 (134-434); RDW 14.8 % (11.9-15.9)
[2017-02-06 14:52] LABS: ALBUMIN 4.1 g/dl (3.4-5.0); ALK PHOS 54 U/L (45-117); ANION GAP 10 (8-16); BILIRUBIN,TOTAL 0.7 mg/dL (0.2-1.0); CALCIUM 10.2 mg/dL (8.5-10.1); CO2 28 mmol/L (21-32); CREATININE 0.8 mg/dL (0.7-1.3); GLUCOSE,RANDOM 64 mg/dL (74-106); SGOT/AST 16 U/L (15-37); SGPT/ALT 19 U/L (12-78); TOT PROT 7.6 g/dl (6.4-8.2)
--- NOTE | 2017-02-06 15:00 | CONSULT ---
[facility] Psychiatric Consult - Data Date of interview: 02/06/17 Admission source: [facility] Identifying data: This is 42 years old male with history of Schizophrenia, history of psychiatric hospitalizations , intoxicated with: Alcohol, Crack, Mthamphethamine, Nicotine Substance Abuse History: - Smoking Cessation. Smoking history: Current every day smoker. Have you smoked in the past 12 months: Yes. Aproximately how many cigarettes per day: 20. Hx Chewing Tobacco Use: No. Initiated information on smoking cessation: Yes. 'Breaking Loose' booklet given: 02/06/17. - Substance & Tx. History. Hx Alcohol Use: Yes (VODKA/BEER). Hx Substance Use: Yes (CRACK) . Substance Use Type: Alcohol, Cocaine. Hx Substance Use Treatment: Yes (LAST TX AT [facility]/REHAB). - Substances Abused. Crack. Route: Smoking. Frequency: 3-6 times per week. Amount used: $60. Age of first use: 14. Date of Last Use: 02/05/17. Alcohol-vodka/beer. Route: Oral. Frequency: Daily. Amount used: 3 pts./2-6 pks. Age of first use: 13. 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 Reports taking prior to admission: Seroquel 50mg poqd, 500mg pop qhs. Remeron 30mg po qhs Physical/Sexual Abuse/Trauma History: Denies Additional Comment: Seroquel 50mg poqd, 500mg pop qhs. Remeron 30mg po qhs Mental Status Exam - Mental Status Exam Alert and Oriented to: Person Cognitive Function: Fair Patient Appearance: Well Groomed Mood: Suspicious Affect: Constricted Patient Behavior: Cooperative Speech Pattern: Appropriate Voice Loudness: Normal Thought Process: Goal Oriented Thought Disorder: Being Controlled Hallucinations: Denies Suicidal Ideation: Denies Homicidal Ideation: Denies Insight/Judgement: Fair Sleep: Difficulty falling asleep Appetite: Weight gain Muscle strength/Tone: Normal Gait/Station: Normal Additional Comments: Seroquel 50mg poqd, 500mg pop qhs. Remeron 30mg po qhs Psychiatric Findings - Problem List ([place] 1, 2,3) (1) Alcohol dependence with uncomplicated withdrawal Current Visit: Yes Status: Acute (2) Cocaine dependence, uncomplicated Current Visit: Yes Status: Acute (3) Nicotine dependence Current Visit: Yes Status: Acute Qualifiers: Nicotine product type: cigarettes Substance use status: in withdrawal Qualified Code(s): F17.213 - Nicotine dependence, cigarettes, with withdrawal (4) Alcohol dependence Current Visit: No Status: Acute (5) Cocaine dependence Current Visit: No Status: Acute (6) Substance induced mood disorder Current Visit: No Status: Acute (7) Schizophrenia Current Visit: No Status: Chronic Comment: Self-report. - Initial Treatment Plan Initial Treatment Plan: Seroquel 50mg poqd, 400mg pop qhs. Remeron 30mg po qhs
[2017-02-06 15:06] LABS: HIV 1 & 2 AB NEGATIVE; HIV 1 AGp24 NEGATIVE
[2017-02-06 15:54] LABS: URINE APPEARANCE CLEAR; URINE BILIRUBIN NEGATIVE (NEGATIVE); URINE BLOOD NEGATIVE (NEGATIVE); URINE COLOR LTYELLOW; URINE GLUCOSE (UA) NEGATIVE (NEGATIVE); URINE KETONE NEGATIVE (NEGATIVE); URINE LEUK ESTERASE NEGATIVE (NEGATIVE); URINE NITRITE NEGATIVE (NEGATIVE); URINE PROTEIN NEGATIVE (NEGATIVE); URINE UROBILINOGEN NEGATIVE mg/dL (0.2-1.0)
[2017-02-06] MEDS: chlordiazePOXIDE HCL 25 MG CAPSULE PO SCH ×2 (20:20→22:23)
[2017-02-06] MEDS ORDERED: QUEtiapine FUMARATE 50 MG TABLET PO SCH (22:00)
[2017-02-06] MEDS: THIAMINE HCL 100 MG TABLET (FP) PO SCH (22:23)
[2017-02-06] MEDS: MIRTAZAPINE 30 MG TABLET (FP) PO SCH (22:23)
[2017-02-06] MEDS: RANITIDINE HCL 150 MG TABLET (FP) PO SCH (22:23)
[2017-02-06] MEDS: QUEtiapine FUMARATE 400 MG TABLET PO SCH (22:23)
[2017-02-07] MEDS: chlordiazePOXIDE HCL 25 MG CAPSULE PO SCH ×4 (05:17→22:18)
--- NOTE | 2017-02-07 09:39 | EKG ---
Test Reason : Blood Pressure : / mmHG Vent. Rate : 093 BPM Atrial Rate : 093 BPM P-R Int : 112 ms QRS Dur : 080 ms QT Int : 376 ms P-R-T Axes : 074 073 060 degrees QTc Int : 467 ms NORMAL SINUS RHYTHM NONSPECIFIC ST ABNORMALITY WHEN COMPARED WITH ECG OF 10-AUG-2016 18:29, NO SIGNIFICANT CHANGE WAS FOUND Confirmed by STEPHON BEYER MD ([id number]) on 02/07/2017 9:38:19 AM Referred By: Confirmed By:STEPHON BEYER MD
[2017-02-07] MEDS: ASPIRIN 81 MG CHEWABLE TABLETS PO SCH (10:17)
[2017-02-07] MEDS: PRENATAL VITAMINS W/ FOLIC ACID TABLET (FP) PO SCH (10:17)
[2017-02-07] MEDS: NICOTINE 21 MG/24 HOURS TOPICAL PATCH TD SCH (10:18)
[2017-02-07] MEDS: QUEtiapine FUMARATE 50 MG TABLET PO SCH (10:18)
[2017-02-07] MEDS: NIFEdipine E.R 60 MG TABLET (UD) PO SCH (10:18)
[2017-02-07] MEDS: RANITIDINE HCL 150 MG TABLET (FP) PO SCH ×2 (10:18→22:18)
--- NOTE | 2017-02-07 10:26 | PN ---
S CIWA - CIWA Score Nausea/Vomitin-Mild Nausea/No Vomiting Muscle Tremors: 4-Moderate,w/Arms Extend Anxiety: 4-Mod. Anxious/Guarded Agitation: 4-Moderately Restless Paroxysmal Sweats: 3 Orientation: 0-Oriented Tacttile Disturbances: 0-None Auditory Disturbances: 0-None Visual Disturbances: 0-None Headache: 0-None Present CIWA-Ar Total Score: 16 BHS Progress Note (SOAP) Subjective: nausea irritable agitation anxiety interrupted sleep Objective: 02/07/17 10:25 Vital Signs Temperature 97.7 F 02/07/17 10:19 Pulse Rate 84 02/07/17 10:19 Respiratory Rate 16 02/07/17 10:19 Blood Pressure 107/80 02/07/17 10:19 O2 Sat by Pulse Oximetry (%) Laboratory Tests 02/06/17 02/06/17 02/06/17 12:00 12:00 12:00 WBC 9.0 D RBC 4.99 Hgb 15.4 Hct 45.7 MCV 91.6 MCH 30.9 MCHC 33.7 RDW 14.8 Plt Count 365 D MPV 9.2 Sodium 140 Potassium 4.0 Chloride 102 Carbon Dioxide 28 Anion Gap 10 BUN 4 L D Creatinine 0.8 Creat Clearance w eGFR > 60 Random Glucose 64 L Calcium 10.2 H Total Bilirubin 0.7 D AST 16 D ALT 19 D Alkaline Phosphatase 54 D Total Protein 7.6 Albumin 4.1 Urine Color Urine Appearance Urine pH Ur Specific [place] Urine Protein Urine Glucose (UA) Urine Ketones Urine Blood Urine Nitrite Urine Bilirubin Urine Urobilinogen Ur Leukocyte Esterase HIV 1&2 Antibody Screen Negative HIV P24 Antigen Negative 02/06/17 14:00 WBC RBC Hgb Hct MCV MCH MCHC RDW Plt Count MPV Sodium Potassium Chloride Carbon Dioxide Anion Gap BUN Creatinine Creat Clearance w eGFR Random Glucose Calcium Total Bilirubin AST ALT Alkaline Phosphatase Total Protein Albumin Urine Color Ltyellow Urine Appearance Clear Urine pH 7.0 Ur Specific [place] 1.010 Urine Protein Negative Urine Glucose (UA) Negative Urine Ketones Negative Urine Blood Negative Urine Nitrite Negative Urine Bilirubin Negative Urine Urobilinogen Negative Ur Leukocyte Esterase Negative HIV 1&2 Antibody Screen HIV P24 Antigen awake/alert ambulating no acute distress Assessment: 02/07/17 10:26 withdrawal sx Plan: continue detox zofran SL prn increase fluids
[2017-02-07] MEDS: ONDANSETRON *ODT* 4 MG TABLET SL PRN (15:15)
[2017-02-07] MEDS: MIRTAZAPINE 30 MG TABLET (FP) PO SCH (22:18)
[2017-02-07] MEDS: QUEtiapine FUMARATE 400 MG TABLET PO SCH (22:18)
[2017-02-07] MEDS: THIAMINE HCL 100 MG TABLET (FP) PO SCH (22:18)
[2017-02-08] MEDS: chlordiazePOXIDE HCL 25 MG CAPSULE PO SCH ×2 (05:22→10:07)
[2017-02-08] MEDS: PRENATAL VITAMINS W/ FOLIC ACID TABLET (FP) PO SCH (10:06)
[2017-02-08] MEDS: RANITIDINE HCL 150 MG TABLET (FP) PO SCH ×2 (10:07→22:18)
[2017-02-08] MEDS: ASPIRIN 81 MG CHEWABLE TABLETS PO SCH (10:07)
[2017-02-08] MEDS: QUEtiapine FUMARATE 50 MG TABLET PO SCH (10:07)
[2017-02-08] MEDS: NICOTINE 21 MG/24 HOURS TOPICAL PATCH TD SCH (10:08)
[2017-02-08] MEDS: NIFEdipine E.R 60 MG TABLET (UD) PO SCH (10:08)
--- NOTE | 2017-02-08 10:20 | PN ---
S CIWA - CIWA Score Nausea/Vomitin Muscle Tremors: 3 Anxiety: 4-Mod. Anxious/Guarded Agitation: 3 Paroxysmal Sweats: 3 Orientation: 0-Oriented Tacttile Disturbances: 0-None Auditory Disturbances: 0-None Visual Disturbances: 0-None Headache: 0-None Present CIWA-Ar Total Score: 15 S Progress Note (SOAP) Subjective: Anxiety,tremors,nausea,sweating,interrupted sleep,restless. Objective: 02/08/17: Vital Signs - 8 hr 02/08/17 02/08/17 02/08/17 03:30 06:00 10:00 Temperature 97.9 F 97.9 F Pulse Rate 88 101 H Respiratory 18 18 18 Rate Blood Pressure 106/63 114/76 Laboratory Last Values WBC 9.0 K/mm3 (4.0-10.0) D 02/06/17 12:00 RBC 4.99 M/mm3 (4.00-5.60) 02/06/17 12:00 Hgb 15.4 GM/dL (11.7-16.9) 02/06/17 12:00 Hct 45.7 % (35.4-49) 02/06/17 12:00 MCV 91.6 fl (80-96) 02/06/17 12:00 MCH 30.9 pg (25.7-33.7) 02/06/17 12:00 MCHC 33.7 g/dl (32.0-35.9) 02/06/17 12:00 RDW 14.8 % (11.9-15.9) 02/06/17 12:00 Plt Count 365 K/MM3 (134-434) D 02/06/17 12:00 MPV 9.2 fl (7.5-11.1) 02/06/17 12:00 Sodium 140 mmol/L (136-145) 02/06/17 12:00 Potassium 4.0 mmol/L (3.5-5.1) 02/06/17 12:00 Chloride 102 mmol/L (98-107) 02/06/17 12:00 Carbon Dioxide 28 mmol/L (21-32) 02/06/17 12:00 Anion Gap 10 (8-16) 02/06/17 12:00 BUN 4 mg/dL (7-18) L D 02/06/17 12:00 Creatinine 0.8 mg/dL (0.7-1.3) 02/06/17 12:00 Creat Clearance w eGFR > 60 (>60) 02/06/17 12:00 Random Glucose 64 mg/dL (74-106) L 02/06/17 12:00 Calcium 10.2 mg/dL (8.5-10.1) H 02/06/17 12:00 Total Bilirubin 0.7 mg/dL (0.2-1.0) D 02/06/17 12:00 AST 16 U/L (15-37) D 02/06/17 12:00 ALT 19 U/L (12-78) D 02/06/17 12:00 Alkaline Phosphatase 54 U/L (45-117) D 02/06/17 12:00 Total Protein 7.6 g/dl (6.4-8.2) 02/06/17 12:00 Albumin 4.1 g/dl (3.4-5.0) 02/06/17 12:00 Urine Color Ltyellow 02/06/17 14:00 Urine Appearance Clear 02/06/17 14:00 Urine pH 7.0 (5.0-8.0) 02/06/17 14:00 Ur Specific [place] 1.010 (1.005-1.025) 02/06/17 14:00 Urine Protein Negative (NEGATIVE) 02/06/17 14:00 Urine Glucose (UA) Negative (NEGATIVE) 02/06/17 14:00 Urine Ketones Negative (NEGATIVE) 02/06/17 14:00 Urine Blood Negative (NEGATIVE) 02/06/17 14:00 Urine Nitrite Negative (NEGATIVE) 02/06/17 14:00 Urine Bilirubin Negative (NEGATIVE) 02/06/17 14:00 Urine Urobilinogen Negative mg/dL (0.2-1.0) 02/06/17 14:00 Ur Leukocyte Esterase Negative (NEGATIVE) 02/06/17 14:00 RPR Titer Nonreactive (NONREACTIVE) 02/06/17 12:00 HIV 1&2 Antibody Screen Negative 02/06/17 12:00 HIV P24 Antigen Negative 02/06/17 12:00 labs noted Assessment: 02/08/17 10:18 Withdrawal sx. Plan: Continue detox
[2017-02-08] MEDS: IBUPROFEN 400 MG TABLET (FP) PO PRN ×2 (16:07→22:18)
[2017-02-08] MEDS: chlordiazePOXIDE 5 MG CAPSULE PO SCH ×2 (17:24→22:18)
[2017-02-08] MEDS: QUEtiapine FUMARATE 400 MG TABLET PO SCH (22:18)
[2017-02-08] MEDS: THIAMINE HCL 100 MG TABLET (FP) PO SCH (22:18)
[2017-02-08] MEDS: MIRTAZAPINE 30 MG TABLET (FP) PO SCH (22:18)
[2017-02-08] MEDS: ACETAMINOPHEN 325 MG TABLET (FP) PO PRN (23:27)
[2017-02-09] MEDS: chlordiazePOXIDE 5 MG CAPSULE PO SCH ×2 (06:13→10:12)
[2017-02-09] MEDS: ASPIRIN 81 MG CHEWABLE TABLETS PO SCH (10:11)
[2017-02-09] MEDS: PRENATAL VITAMINS W/ FOLIC ACID TABLET (FP) PO SCH (10:11)
[2017-02-09] MEDS: NIFEdipine E.R 60 MG TABLET (UD) PO SCH (10:12)
[2017-02-09] MEDS: ONDANSETRON *ODT* 4 MG TABLET SL PRN (10:12)
[2017-02-09] MEDS: NICOTINE 21 MG/24 HOURS TOPICAL PATCH TD SCH (10:12)
[2017-02-09] MEDS: RANITIDINE HCL 150 MG TABLET (FP) PO SCH ×2 (10:12→22:47)
[2017-02-09] MEDS: QUEtiapine FUMARATE 50 MG TABLET PO SCH (10:14)
[2017-02-09] MEDS: IBUPROFEN 400 MG TABLET (FP) PO PRN ×2 (12:52→22:08)
--- NOTE | 2017-02-09 17:03 | PN ---
BHS Progress Note (SOAP) Subjective: Sweating,interrupted sleep,restless Objective: 02/09/17 17:02 Vital Signs - 8 hr 02/09/17 02/09/17 10:00 14:36 Temperature 97.9 F 98.4 F Pulse Rate 105 H 105 H Respiratory 16 16 Rate Blood Pressure 113/75 148/77 Laboratory Last Values WBC 9.0 K/mm3 (4.0-10.0) D 02/06/17 12:00 RBC 4.99 M/mm3 (4.00-5.60) 02/06/17 12:00 Hgb 15.4 GM/dL (11.7-16.9) 02/06/17 12:00 Hct 45.7 % (35.4-49) 02/06/17 12:00 MCV 91.6 fl (80-96) 02/06/17 12:00 MCH 30.9 pg (25.7-33.7) 02/06/17 12:00 MCHC 33.7 g/dl (32.0-35.9) 02/06/17 12:00 RDW 14.8 % (11.9-15.9) 02/06/17 12:00 Plt Count 365 K/MM3 (134-434) D 02/06/17 12:00 MPV 9.2 fl (7.5-11.1) 02/06/17 12:00 Sodium 140 mmol/L (136-145) 02/06/17 12:00 Potassium 4.0 mmol/L (3.5-5.1) 02/06/17 12:00 Chloride 102 mmol/L (98-107) 02/06/17 12:00 Carbon Dioxide 28 mmol/L (21-32) 02/06/17 12:00 Anion Gap 10 (8-16) 02/06/17 12:00 BUN 4 mg/dL (7-18) L D 02/06/17 12:00 Creatinine 0.8 mg/dL (0.7-1.3) 02/06/17 12:00 Creat Clearance w eGFR > 60 (>60) 02/06/17 12:00 Random Glucose 64 mg/dL (74-106) L 02/06/17 12:00 Calcium 10.2 mg/dL (8.5-10.1) H 02/06/17 12:00 Total Bilirubin 0.7 mg/dL (0.2-1.0) D 02/06/17 12:00 AST 16 U/L (15-37) D 02/06/17 12:00 ALT 19 U/L (12-78) D 02/06/17 12:00 Alkaline Phosphatase 54 U/L (45-117) D 02/06/17 12:00 Total Protein 7.6 g/dl (6.4-8.2) 02/06/17 12:00 Albumin 4.1 g/dl (3.4-5.0) 02/06/17 12:00 Urine Color Ltyellow 02/06/17 14:00 Urine Appearance Clear 02/06/17 14:00 Urine pH 7.0 (5.0-8.0) 02/06/17 14:00 Ur Specific [place] 1.010 (1.005-1.025) 02/06/17 14:00 Urine Protein Negative (NEGATIVE) 02/06/17 14:00 Urine Glucose (UA) Negative (NEGATIVE) 02/06/17 14:00 Urine Ketones Negative (NEGATIVE) 02/06/17 14:00 Urine Blood Negative (NEGATIVE) 02/06/17 14:00 Urine Nitrite Negative (NEGATIVE) 02/06/17 14:00 Urine Bilirubin Negative (NEGATIVE) 02/06/17 14:00 Urine Urobilinogen Negative mg/dL (0.2-1.0) 02/06/17 14:00 Ur Leukocyte Esterase Negative (NEGATIVE) 02/06/17 14:00 RPR Titer Nonreactive (NONREACTIVE) 02/06/17 12:00 HIV 1&2 Antibody Screen Negative 02/06/17 12:00 HIV P24 Antigen Negative 02/06/17 12:00 labs noted Assessment: 02/09/17 17:03 Withdrawal sx. Plan: Continue detox
[2017-02-09] MEDS: chlordiazePOXIDE HCL 10 MG CAPSULE PO SCH ×2 (17:40→22:08)
[2017-02-09] MEDS: ACETAMINOPHEN 325 MG TABLET (FP) PO PRN (19:52)
[2017-02-09] MEDS: MIRTAZAPINE 30 MG TABLET (FP) PO SCH (22:08)
[2017-02-09] MEDS: THIAMINE HCL 100 MG TABLET (FP) PO SCH (22:08)
[2017-02-09] MEDS: QUEtiapine FUMARATE 400 MG TABLET PO SCH (22:47)
[2017-02-10] MEDS: chlordiazePOXIDE HCL 10 MG CAPSULE PO SCH ×2 (05:20→10:06)
--- NOTE | 2017-02-10 08:58 | DS ---
[facility] Detox Discharge Summary Admission Date: 02/06/17 Discharge Date: 02/10/17 - History Present History: Alcohol Dependence, Cocaine Dependence - Physical Exam Results Vital Signs: Vital Signs Temperature 97.5 F L 02/10/17 06:00 Pulse Rate 101 H 02/10/17 06:00 Respiratory Rate 18 02/10/17 06:00 Blood Pressure 120/80 02/10/17 06:00 O2 Sat by Pulse Oximetry (%) - Treatment Hospital Course: Detox Protocol Followed, Detoxed Safely, Responded well, Discharged Condition Good, Rehab Referral Accepted - Medication Discharge Medications: Ambulatory Orders Albuterol Sulfate Inhaler - [Ventolin Hfa Inhaler -] 2 inh PO Q4H PRN 02/06/17 Aspirin [ASA -] 81 mg PO DAILY 02/06/17 Fluticasone Propionate [Flovent Diskus] 0 mcg IH BID 02/06/17 Ibuprofen [Motrin -] 600 mg PO Q6H PRN 02/06/17 Mirtazapine [Remeron -] 30 mg PO HS #30 tablet 02/06/17 Nifedipine [Procardia Xl] 60 mg PO DAILY 02/06/17 [place]-3 Fatty Acids/Fish Oil [Fish Oil 1,000 mg Softgel] 1 each PO DAILY Quetiapine Fumarate [Seroquel -] 50 mg PO AM 02/06/17 Quetiapine Fumarate [Seroquel -] 50 mg PO DAILY #30 tablet 02/06/17 Quetiapine Fumarate [Seroquel -] 400 mg PO HS #30 tab 02/06/17 Quetiapine Fumarate [Seroquel] 500 mg PO HS 02/06/17 Ranitidine HCl [Zantac] 150 mg PO BID 02/06/17 - Diagnosis (1) Alcohol dependence with uncomplicated withdrawal Current Visit: Yes Status: Chronic (2) Cocaine dependence, uncomplicated Current Visit: Yes Status: Chronic (3) Nicotine dependence Current Visit: Yes Status: Chronic Qualifiers: Nicotine product type: cigarettes Substance use status: uncomplicated Qualified Code(s): F17.210 - Nicotine dependence, cigarettes, uncomplicated (4) Asthma Current Visit: Yes Status: Chronic Qualifiers: Asthma severity: mild intermittent Asthma complication type: uncomplicated Qualified Code(s): J45.20 - Mild intermittent asthma, uncomplicated (5) GERD (gastroesophageal reflux disease) Current Visit: Yes Status: Chronic Qualifiers: Esophagitis presence: without esophagitis Qualified Code(s): K21.9 - Gastro-esophageal reflux disease without esophagitis (6) HTN (hypertension) Current Visit: Yes Status: Chronic Qualifiers: Hypertension type: essential hypertension Qualified Code(s): I10 - Essential (primary) hypertension (7) Hypercholesterolemia Current Visit: Yes Status: Chronic (8) Insomnia Current Visit: No Status: Acute (9) Substance induced mood disorder Current Visit: No Status: Acute (10) Schizophrenia Current Visit: No Status: Chronic - AMA Did Patient Leave Against Medical Advice: No
[2017-02-10] MEDS: PRENATAL VITAMINS W/ FOLIC ACID TABLET (FP) PO SCH (10:06)
[2017-02-10] MEDS: ASPIRIN 81 MG CHEWABLE TABLETS PO SCH (10:06)
[2017-02-10] MEDS: NICOTINE 21 MG/24 HOURS TOPICAL PATCH TD SCH (10:07)
[2017-02-10] MEDS: QUEtiapine FUMARATE 50 MG TABLET PO SCH (10:07)
[2017-02-10] MEDS: RANITIDINE HCL 150 MG TABLET (FP) PO SCH (10:07)
[2017-02-10] MEDS: NIFEdipine E.R 60 MG TABLET (UD) PO SCH (10:07)
[2017-02-10] MEDS: IBUPROFEN 400 MG TABLET (FP) PO PRN (10:09)
[2017-02-10 10:15] VITALS: BP 141/97; PULSE 115; TEMP 97.2
== END 2017-02-10 12:47 | disposition home or self-care (01) | DRG 774 ==
LOC: YASAS 10:16 → Y6N 12:11
PROVIDERS: ADMIT Internal Medicine; ATTEND Internal Medicine
PROC: HZ2ZZZZ Detoxification Services for Substance Abuse Treatment (ICD-10-PCS; principal; 2017-02-06)
DX: F10.230 Alcohol dependence with withdrawal, uncomplicated (principal); F14.20 Cocaine dependence, uncomplicated; F17.210 Nicotine dependence, cigarettes, uncomplicated; F20.9 Schizophrenia, unspecified; F19.24 Other psychoactive substance dependence with psychoactive substance-induced mood disorder; R00.0 Tachycardia, unspecified; I10 Essential (primary) hypertension; E78.00 Pure hypercholesterolemia, unspecified; J45.20 Mild intermittent asthma, uncomplicated; K21.9 Gastro-esophageal reflux disease without esophagitis; G47.00 Insomnia, unspecified; Z88.8 Allergy status to other drugs, medicaments and biological substances; Z87.438 Personal history of other diseases of male genital organs; Z91.5 Personal history of self-harm
CPT/HCPCS: 36415; 80053; 81003; 85027; 86593; 87389; 93005; 93010

== ENCOUNTER 2017-02-10 12:58 | Inpatient (IN) | payer OTHER ==
[2017-02-10] MEDS ORDERED: P-EPHED 60MG/TRIPROLIDI 2.5MG TABLET PO PRN (13:46)
[2017-02-10] MEDS ORDERED: MAGNESIUM CITRATE 300 ML BOTTLE PO PRN (13:46)
[2017-02-10] MEDS ORDERED: LOPERAMIDE HCL 2 MG CAPSULE PO PRN (13:46)
[2017-02-10] MEDS ORDERED: guaiFENesin/D-METHORPHAN HB 10 ML UNIT-DOSE CUPS PO PRN (13:46)
[2017-02-10] MEDS ORDERED: MAGNESIUM HYDROX 2400MG/30ML ORAL SUSPENSION 30 ML CUP PO PRN (13:46)
[2017-02-10] MEDS ORDERED: MENTHOL/PHENOL 1 EACH UD MM PRN (13:46)
[2017-02-10] MEDS ORDERED: ACETAMINOPHEN 325 MG TABLET (FP) PO PRN (13:46)
--- NOTE | 2017-02-10 13:52 | HP ---
[facility] Rehab Assess/Revision - Admission History Admitted to Rehab from: [facility] Date of Admission to Rehab: 02/10/17 - Findings Detox History & Physical reviewed: Yes Concur with findings: Yes Comments/Additional Findings: for rehab as protocol
[2017-02-10] MEDS: IBUPROFEN 400 MG TABLET (FP) PO PRN (15:51)
[2017-02-10] MEDS ORDERED: ALBUTEROL SO4 6.7 GM HFA INHALER IH PRN (16:05)
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
[2017-02-10] MEDS ORDERED: QUEtiapine FUMARATE 200 MG TABLET ONE (20:22)
[2017-02-10] MEDS ORDERED: QUEtiapine FUMARATE 300 MG TABLET ONE (20:22)
[2017-02-10] MEDS: THIAMINE HCL 100 MG TABLET (FP) PO SCH (21:09)
[2017-02-10] MEDS: RANITIDINE HCL 150 MG TABLET (FP) PO SCH (21:09)
[2017-02-10] MEDS: MIRTAZAPINE 30 MG TABLET (FP) PO SCH (21:09)
[2017-02-10] MEDS: QUETIAPINE FUMARATE 300 MG, QUETIAPINE FUMARATE 200 MG PO SCH (21:09)
[2017-02-10] MEDS ORDERED: QUEtiapine FUMARATE 400 MG TABLET PO SCH (22:00)
[2017-02-11] MEDS: IBUPROFEN 400 MG TABLET (FP) PO PRN ×2 (01:34→10:03)
[2017-02-11] MEDS: ASPIRIN 81 MG CHEWABLE TABLETS PO SCH (09:57)
[2017-02-11] MEDS: QUEtiapine FUMARATE 50 MG TABLET PO SCH (09:57)
[2017-02-11] MEDS: RANITIDINE HCL 150 MG TABLET (FP) PO SCH ×2 (09:58→21:14)
[2017-02-11] MEDS: NIFEdipine E.R 60 MG TABLET (UD) PO SCH (09:58)
[2017-02-11] MEDS: PRENATAL VITAMINS W/ FOLIC ACID TABLET (FP) PO SCH (09:58)
--- NOTE | 2017-02-11 11:11 | PN ---
[facility] Progress Note Note: infected dental cavity left lower molar with pain,gingivitis,pen vee k 500 mgs po q6hrs for 7 dys,motrin 400 mgs po q 4hrs prn for toothache,2% xylociane viscous prn
[2017-02-11] MEDS: PENICILLIN V POTASSIUM 500 MG TABLET PO SCH ×2 (12:20→17:36)
[2017-02-11] MEDS: LIDOCAINE VISCOUS 2% ORAL/TOP 20 ML UNIT-DOSE CUP MM PRN (12:21)
[2017-02-11] MEDS: THIAMINE HCL 100 MG TABLET (FP) PO SCH (21:14)
[2017-02-11] MEDS: MIRTAZAPINE 30 MG TABLET (FP) PO SCH (21:14)
[2017-02-11] MEDS: QUETIAPINE FUMARATE 300 MG, QUETIAPINE FUMARATE 200 MG PO SCH (21:15)
[2017-02-11] MEDS ORDERED: QUEtiapine FUMARATE 200 MG TABLET ONE (21:15)
[2017-02-11] MEDS ORDERED: QUEtiapine FUMARATE 300 MG TABLET ONE (21:15)
[2017-02-11] MEDS: diphenhydrAMINE HCL 50 MG CAPSULE PO PRN (21:15)
[2017-02-12] MEDS: PENICILLIN V POTASSIUM 500 MG TABLET PO SCH ×4 (00:36→21:23)
[2017-02-12] MEDS: IBUPROFEN 400 MG TABLET (FP) PO PRN ×2 (00:38→09:45)
[2017-02-12] MEDS: RANITIDINE HCL 150 MG TABLET (FP) PO SCH ×2 (09:44→21:23)
[2017-02-12] MEDS: ASPIRIN 81 MG CHEWABLE TABLETS PO SCH (09:45)
[2017-02-12] MEDS: NIFEdipine E.R 60 MG TABLET (UD) PO SCH (09:45)
[2017-02-12] MEDS: PRENATAL VITAMINS W/ FOLIC ACID TABLET (FP) PO SCH (09:45)
[2017-02-12] MEDS: QUEtiapine FUMARATE 50 MG TABLET PO SCH (09:45)
[2017-02-12] MEDS: LIDOCAINE VISCOUS 2% ORAL/TOP 20 ML UNIT-DOSE CUP MM PRN (09:46)
--- NOTE | 2017-02-12 16:09 | PN ---
Psychiatric Progress Note Vital Signs: Vital Signs Period Temp Pulse Resp BP Sys/Graham Pulse Ox Last 24 Hr 98.7 F 105 18-18 120/77 Date of Session: 02/12/17 Chief Complaint:: Sleep is still very big problem. HPI: Patient addressed alcohol,cocaine dependence comorbid with Schizophrenia.paranoid type.. Current Medications: Active Medications Generic Name Dose Route Start Last Admin Trade Name Freq PRN Reason Stop Dose Admin Acetaminophen 650 mg 02/10/17 13:46 02/11/17 12:20 Tylenol - PO 650 mg Q4H PRN Administration FEVER OR PAIN Al Hydroxide/Mg Hydroxide 30 ml 02/10/17 13:46 Mylanta Oral Suspension - PO Q6H PRN DYSPEPSIA Albuterol Sulfate 2 puff 02/10/17 16:05 Ventolin Hfa Inhaler - IH Q4H PRN ASTHMA Aspirin 81 mg 02/11/17 10:00 02/12/17 09:45 Asa - PO 81 mg DAILY ZAKIA Administration Diphenhydramine HCl 50 mg 02/10/17 13:46 02/11/17 21:15 Benadryl - PO 50 mg HSMR1 PRN Administration FOR ITCHING Eucalyptus/Menthol/Phenol/Sorbitol 1 each 02/10/17 13:46 Cepastat Lozenge - MM Q4H PRN SORE THROAT Guaifenesin 10 ml 02/10/17 13:46 Robitussin Dm - PO Q6H PRN COUGH Hydroxyzine Pamoate 50 mg 02/10/17 13:46 Vistaril - PO Q4H PRN AGITATION Ibuprofen 400 mg 02/10/17 13:46 02/12/17 09:45 Motrin - PO 400 mg Q6H PRN Administration PAIN Lidocaine HCl 20 ml 02/11/17 11:12 02/12/17 09:46 Xylocaine 2% Viscous Oral - MM 20 ml Q6HPO PRN Administration ORAL PAIN/MOUTH SORES Loperamide HCl 4 mg 02/10/17 13:46 Imodium - PO Q6H PRN DIARRHEA Magnesium Hydroxide 30 ml 02/10/17 13:46 Milk Of Magnesia - PO DAILY PRN CONSTIPATION Mirtazapine 30 mg 02/10/17 22:00 02/11/17 21:14 Remeron - PO 30 mg HS ZAKIA Administration Nifedipine 60 mg 02/11/17 10:00 08/16/17 09:45 Procardia Xl - PO 60 mg DAILY ZAKIA Administration Penicillin V Potassium 500 mg 02/11/17 12:00 02/12/17 13:12 Pen Vee K - PO 500 mg Q6HPO ZAKIA Administration Multivit/Folic Acid/Iron 1 tab 02/11/17 10:00 02/12/17 09:45 Vitamins (Sjr) - PO 1 tab DAILY ZAKIA Administration Pseudoephedrine/Triprolidine 1 combo 02/10/17 13:46 Actifed - PO TID PRN NASAL CONGESTION Quetiapine Fumarate 50 mg 02/11/17 10:00 02/12/17 09:45 Seroquel - PO 50 mg DAILY ZAKIA Administration Quetiapine Fumarate 600 mg 02/12/17 22:00 Seroquel - PO HS ZAKIA Ranitidine HCl 150 mg 02/10/17 22:00 02/12/17 09:44 Zantac - PO 150 mg BID ZAKIA Administration Thiamine HCl 100 mg 02/10/17 22:00 02/11/17 21:14 Vitamin B1 - PO 100 mg HS ZAKIA Administration Current Side Effect: No Lab tests ordered: No Lab tests reviewed: Yes Provider note:: Chart was revuewed,patient was evaluated,medication management has been discussed with the patient including discussion properties of Seroquel( side effects,benefits,dose adjustment).Seroquel 500 mg po hs will be adjusted to 600 mg po hs. Supportive therapy,psychoeducation has been provided. Total face to face time:: 25 Mental Status Exam - Mental Status Exam Alert and Oriented to: Time, Place, Person Cognitive Function: Grossly Intact Patient Appearance: Unkempt Mood: Depressed, Withdrawn Affect: Mood Congruent, Constricted Patient Behavior: Cooperative Speech Pattern: Clear Voice Loudness: Normal Thought Process: Goal Oriented Thought Disorder: Being Controlled Hallucinations: Denies Suicidal Ideation: Denies Homicidal Ideation: Denies Insight/Judgement: Fair Sleep: Difficulty falling asleep Appetite: Fair Muscle strength/Tone: Normal Gait/Station: Normal Psychiatric Treatment Plan - Problem List (1) Alcohol dependence with uncomplicated withdrawal Current Visit: Yes (2) Cocaine dependence, uncomplicated Current Visit: Yes (3) GERD (gastroesophageal reflux disease) Current Visit: Yes Qualifiers: Esophagitis presence: without esophagitis Qualified Code(s): K21.9 - Gastro-esophageal reflux disease without esophagitis (4) HTN (hypertension) Current Visit: Yes Qualifiers: Hypertension type: essential hypertension Qualified Code(s): I10 - Essential (primary) hypertension (5) Hypercholesterolemia Current Visit: Yes (6) Schizophrenia, paranoid type Current Visit: Yes
[2017-02-12] MEDS: MIRTAZAPINE 30 MG TABLET (FP) PO SCH (21:23)
[2017-02-12] MEDS: THIAMINE HCL 100 MG TABLET (FP) PO SCH (21:24)
[2017-02-12] MEDS: QUEtiapine FUMARATE 300 MG TABLET PO SCH (21:25)
[2017-02-13] MEDS: diphenhydrAMINE HCL 50 MG CAPSULE PO PRN (00:53)
[2017-02-13] MEDS: PENICILLIN V POTASSIUM 500 MG TABLET PO SCH ×5 (00:53→23:52)
[2017-02-13] MEDS: NIFEdipine E.R 60 MG TABLET (UD) PO SCH (09:27)
[2017-02-13] MEDS: RANITIDINE HCL 150 MG TABLET (FP) PO SCH ×2 (09:27→21:50)
[2017-02-13] MEDS: QUEtiapine FUMARATE 50 MG TABLET PO SCH (09:27)
[2017-02-13] MEDS: PRENATAL VITAMINS W/ FOLIC ACID TABLET (FP) PO SCH (09:28)
[2017-02-13] MEDS: ASPIRIN 81 MG CHEWABLE TABLETS PO SCH (09:28)
[2017-02-13] MEDS: MAG HYDROX/AL HYDROX/SIMETH 30 ML UNIT-DOSE CUP PO PRN (09:30)
[2017-02-13] MEDS: MIRTAZAPINE 30 MG TABLET (FP) PO SCH (21:50)
[2017-02-13] MEDS: QUEtiapine FUMARATE 300 MG TABLET PO SCH (21:50)
[2017-02-13] MEDS: THIAMINE HCL 100 MG TABLET (FP) PO SCH (21:50)
[2017-02-14] MEDS: PENICILLIN V POTASSIUM 500 MG TABLET PO SCH ×4 (06:42→23:59)
[2017-02-14] MEDS: ASPIRIN 81 MG CHEWABLE TABLETS PO SCH (09:45)
[2017-02-14] MEDS: QUEtiapine FUMARATE 50 MG TABLET PO SCH (09:46)
[2017-02-14] MEDS: PRENATAL VITAMINS W/ FOLIC ACID TABLET (FP) PO SCH (09:46)
[2017-02-14] MEDS: NIFEdipine E.R 60 MG TABLET (UD) PO SCH (09:46)
[2017-02-14] MEDS: RANITIDINE HCL 150 MG TABLET (FP) PO SCH ×2 (09:46→21:17)
[2017-02-14] MEDS: QUEtiapine FUMARATE 300 MG TABLET PO SCH (21:17)
[2017-02-14] MEDS: THIAMINE HCL 100 MG TABLET (FP) PO SCH (21:17)
[2017-02-14] MEDS: MIRTAZAPINE 30 MG TABLET (FP) PO SCH (21:17)
[2017-02-15] MEDS: PENICILLIN V POTASSIUM 500 MG TABLET PO SCH ×3 (06:32→17:08)
[2017-02-15] MEDS: PRENATAL VITAMINS W/ FOLIC ACID TABLET (FP) PO SCH (09:48)
[2017-02-15] MEDS: RANITIDINE HCL 150 MG TABLET (FP) PO SCH ×2 (09:48→21:00)
[2017-02-15] MEDS: ASPIRIN 81 MG CHEWABLE TABLETS PO SCH (09:48)
[2017-02-15] MEDS: QUEtiapine FUMARATE 50 MG TABLET PO SCH (09:48)
[2017-02-15] MEDS: NIFEdipine E.R 60 MG TABLET (UD) PO SCH (09:48)
[2017-02-15] MEDS: IBUPROFEN 400 MG TABLET (FP) PO PRN (09:49)
[2017-02-15] MEDS: MIRTAZAPINE 30 MG TABLET (FP) PO SCH (21:00)
[2017-02-15] MEDS: QUEtiapine FUMARATE 300 MG TABLET PO SCH (21:00)
[2017-02-15] MEDS: THIAMINE HCL 100 MG TABLET (FP) PO SCH (21:00)
[2017-02-15] MEDS: diphenhydrAMINE HCL 50 MG CAPSULE PO PRN (21:01)
[2017-02-16] MEDS: PENICILLIN V POTASSIUM 500 MG TABLET PO SCH ×4 (06:49→17:57)
[2017-02-16] MEDS: PRENATAL VITAMINS W/ FOLIC ACID TABLET (FP) PO SCH (09:51)
[2017-02-16] MEDS: IBUPROFEN 400 MG TABLET (FP) PO PRN (09:51)
[2017-02-16] MEDS: QUEtiapine FUMARATE 50 MG TABLET PO SCH (09:51)
[2017-02-16] MEDS: NIFEdipine E.R 60 MG TABLET (UD) PO SCH (09:51)
[2017-02-16] MEDS: ASPIRIN 81 MG CHEWABLE TABLETS PO SCH (09:51)
[2017-02-16] MEDS: RANITIDINE HCL 150 MG TABLET (FP) PO SCH ×2 (09:54→21:59)
[2017-02-16] MEDS: QUEtiapine FUMARATE 300 MG TABLET PO SCH (21:58)
[2017-02-16] MEDS: THIAMINE HCL 100 MG TABLET (FP) PO SCH (21:58)
[2017-02-16] MEDS: MIRTAZAPINE 30 MG TABLET (FP) PO SCH (21:59)
[2017-02-17] MEDS: PENICILLIN V POTASSIUM 500 MG TABLET PO SCH ×5 (00:17→23:41)
[2017-02-17] MEDS: PRENATAL VITAMINS W/ FOLIC ACID TABLET (FP) PO SCH (09:44)
[2017-02-17] MEDS: QUEtiapine FUMARATE 50 MG TABLET PO SCH (09:44)
[2017-02-17] MEDS: NIFEdipine E.R 60 MG TABLET (UD) PO SCH (09:44)
[2017-02-17] MEDS: RANITIDINE HCL 150 MG TABLET (FP) PO SCH ×2 (09:44→21:45)
[2017-02-17] MEDS: ASPIRIN 81 MG CHEWABLE TABLETS PO SCH (09:44)
--- NOTE | 2017-02-17 14:17 | PN ---
Psychiatric Progress Note Vital Signs: Vital Signs Period Temp Pulse Resp BP Sys/Graham Pulse Ox Last 24 Hr 98.6 F 92-99 17-18 116-137/68-75 Date of Session: 02/17/17 Chief Complaint:: progress update HPI: Patient is addressing alcohol, cocaine dependence comorbid Schizophrenia, paranoid. ROS: BA,HTN,Hyperlipidemia,GERD medically managed. Current Medications: Active Medications Generic Name Dose Route Start Last Admin Trade Name Freq PRN Reason Stop Dose Admin Acetaminophen 650 mg 02/10/17 13:46 02/11/17 12:20 Tylenol - PO 650 mg Q4H PRN Administration FEVER OR PAIN Al Hydroxide/Mg Hydroxide 30 ml 02/10/17 13:46 02/13/17 09:30 Mylanta Oral Suspension - PO 30 ml Q6H PRN Administration DYSPEPSIA Albuterol Sulfate 2 puff 02/10/17 16:05 Ventolin Hfa Inhaler - IH Q4H PRN ASTHMA Aspirin 81 mg 02/11/17 10:00 02/17/17 09:44 Asa - PO 81 mg DAILY ZAKIA Administration Bupropion HCl 100 mg 02/18/17 10:00 Wellbutrin - PO DAILY ZAKIA Diphenhydramine HCl 50 mg 02/10/17 13:46 02/15/17 21:01 Benadryl - PO 50 mg HSMR1 PRN Administration FOR ITCHING Eucalyptus/Menthol/Phenol/Sorbitol 1 each 02/10/17 13:46 Cepastat Lozenge - MM Q4H PRN SORE THROAT Guaifenesin 10 ml 02/10/17 13:46 Robitussin Dm - PO Q6H PRN COUGH Hydroxyzine Pamoate 50 mg 02/10/17 13:46 Vistaril - PO Q4H PRN AGITATION Ibuprofen 400 mg 02/10/17 13:46 02/16/17 09:51 Motrin - PO 400 mg Q6H PRN Administration PAIN Lidocaine HCl 20 ml 02/11/17 11:12 02/12/17 09:46 Xylocaine 2% Viscous Oral - MM 20 ml Q6HPO PRN Administration ORAL PAIN/MOUTH SORES Loperamide HCl 4 mg 02/10/17 13:46 Imodium - PO Q6H PRN DIARRHEA Magnesium Hydroxide 30 ml 02/10/17 13:46 Milk Of Magnesia - PO DAILY PRN CONSTIPATION Mirtazapine 45 mg 02/17/17 14:10 Remeron - PO HS ZAKIA Nifedipine 60 mg 02/11/17 10:00 02/17/17 09:44 Procardia Xl - PO 60 mg DAILY ZAKIA Administration Penicillin V Potassium 500 mg 02/11/17 12:00 02/17/17 12:29 Pen Vee K - PO 500 mg Q6HPO ZAKIA Administration Multivit/Folic Acid/Iron 1 tab 02/11/17 10:00 02/17/17 09:44 Vitamins (Sjr) - PO 1 tab DAILY ZAKIA Administration Pseudoephedrine/Triprolidine 1 combo 02/10/17 13:46 Actifed - PO TID PRN NASAL CONGESTION Quetiapine Fumarate 50 mg 02/11/17 10:00 02/17/17 09:44 Seroquel - PO 50 mg DAILY ZAKIA Administration Quetiapine Fumarate 600 mg 02/12/17 22:00 02/16/17 21:58 Seroquel - PO 600 mg HS ZAKIA Administration Ranitidine HCl 150 mg 02/10/17 22:00 02/17/17 09:44 Zantac - PO 150 mg BID ZAKIA Administration Thiamine HCl 100 mg 02/10/17 22:00 02/16/17 21:58 Vitamin B1 - PO 100 mg HS ZAKIA Administration Medication(s) Change(s): increase Remeron 45 mg po hs, add Wellbutrin 100 mg po daily. Current Side Effect: No Lab tests ordered: No Lab tests reviewed: Yes Provider note:: Reviewed the chart , admission notes appreciated, patient was seen today. He continues to c/o poor interrupted slee, feeling depressed, low energy level, isolative. He states his last psychiatric hospitalization was 3 moonths ago due to suicidal atmept as pills overdose, admitted to [facility], belongs to ACT team at [facility]. Reviewed medications with the patient, discussed indicatioins, properties of Wellbutrin, patient agreed to start medications, supportive therapy and psychoeducation provided, will continue to monitor progress. Total face to face time:: 35 Mental Status Exam - Mental Status Exam Alert and Oriented to: Time, Place, Person Cognitive Function: Good Patient Appearance: Well Groomed Mood: Apathetic, Depressed, Sad Affect: Mood Congruent, Constricted Patient Behavior: Cooperative Speech Pattern: Appropriate Voice Loudness: Mildly Soft/Quiet Thought Process: Intact Thought Disorder: Not Present Hallucinations: Denies Suicidal Ideation: Denies Homicidal Ideation: Denies Insight/Judgement: Fair Sleep: Poorly, Difficulty falling asleep Appetite: Fair Muscle strength/Tone: Normal Gait/Station: Normal Psychiatric Treatment Plan - Problem List (1) Schizophrenia, paranoid type Current Visit: Yes (2) GERD (gastroesophageal reflux disease) Current Visit: Yes Qualifiers: Esophagitis presence: without esophagitis Qualified Code(s): K21.9 - Gastro-esophageal reflux disease without esophagitis (3) HTN (hypertension) Current Visit: Yes Qualifiers: Hypertension type: essential hypertension Qualified Code(s): I10 - Essential (primary) hypertension (4) Hypercholesterolemia Current Visit: Yes (5) Alcohol dependence Current Visit: Yes (6) Cocaine dependence Current Visit: Yes
[2017-02-17] MEDS: MIRTAZAPINE 15 MG TABLET (FP) PO SCH (21:45)
[2017-02-17] MEDS: QUEtiapine FUMARATE 300 MG TABLET PO SCH (21:45)
[2017-02-17] MEDS: THIAMINE HCL 100 MG TABLET (FP) PO SCH (21:45)
[2017-02-18] MEDS: PENICILLIN V POTASSIUM 500 MG TABLET PO SCH ×2 (06:21→12:13)
[2017-02-18] MEDS: buPROPion HCL 100 MG TABLET PO SCH (09:56)
[2017-02-18] MEDS: NIFEdipine E.R 60 MG TABLET (UD) PO SCH (09:56)
[2017-02-18] MEDS: PRENATAL VITAMINS W/ FOLIC ACID TABLET (FP) PO SCH (09:56)
[2017-02-18] MEDS: RANITIDINE HCL 150 MG TABLET (FP) PO SCH ×2 (09:56→21:10)
[2017-02-18] MEDS: ASPIRIN 81 MG CHEWABLE TABLETS PO SCH (09:56)
[2017-02-18] MEDS: QUEtiapine FUMARATE 50 MG TABLET PO SCH (09:57)
[2017-02-18] MEDS: QUEtiapine FUMARATE 300 MG TABLET PO SCH (21:10)
[2017-02-18] MEDS: THIAMINE HCL 100 MG TABLET (FP) PO SCH (21:10)
[2017-02-18] MEDS: MIRTAZAPINE 15 MG TABLET (FP) PO SCH (21:11)
[2017-02-19] MEDS: PRENATAL VITAMINS W/ FOLIC ACID TABLET (FP) PO SCH (09:44)
[2017-02-19] MEDS: QUEtiapine FUMARATE 50 MG TABLET PO SCH (09:44)
[2017-02-19] MEDS: NIFEdipine E.R 60 MG TABLET (UD) PO SCH (09:44)
[2017-02-19] MEDS: ASPIRIN 81 MG CHEWABLE TABLETS PO SCH (09:44)
[2017-02-19] MEDS: RANITIDINE HCL 150 MG TABLET (FP) PO SCH ×2 (09:44→21:18)
[2017-02-19] MEDS: buPROPion HCL 100 MG TABLET PO SCH (09:45)
[2017-02-19] MEDS: hydrOXYzine PAMOATE 50 MG CAPSULE (FP) PO PRN (12:10)
[2017-02-19] MEDS: MIRTAZAPINE 15 MG TABLET (FP) PO SCH (21:18)
[2017-02-19] MEDS: THIAMINE HCL 100 MG TABLET (FP) PO SCH (21:18)
[2017-02-19] MEDS: QUEtiapine FUMARATE 300 MG TABLET PO SCH (21:19)
[2017-02-20] MEDS: PRENATAL VITAMINS W/ FOLIC ACID TABLET (FP) PO SCH (09:57)
[2017-02-20] MEDS: ASPIRIN 81 MG CHEWABLE TABLETS PO SCH (09:57)
[2017-02-20] MEDS: RANITIDINE HCL 150 MG TABLET (FP) PO SCH ×2 (09:57→21:08)
[2017-02-20] MEDS: buPROPion HCL 100 MG TABLET PO SCH (09:57)
[2017-02-20] MEDS: QUEtiapine FUMARATE 50 MG TABLET PO SCH (09:57)
[2017-02-20] MEDS: NIFEdipine E.R 60 MG TABLET (UD) PO SCH (09:57)
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
[2017-02-20] MEDS: IBUPROFEN 400 MG TABLET (FP) PO PRN (17:53)
[2017-02-20] MEDS: SUVOREXANT 10 MG TABLET PO SCH (21:08)
[2017-02-20] MEDS: QUEtiapine FUMARATE 300 MG TABLET PO SCH (21:08)
[2017-02-20] MEDS: MIRTAZAPINE 15 MG TABLET (FP) PO SCH (21:08)
[2017-02-20] MEDS: THIAMINE HCL 100 MG TABLET (FP) PO SCH (21:08)
[2017-02-21] MEDS: RANITIDINE HCL 150 MG TABLET (FP) PO SCH ×2 (09:39→21:05)
[2017-02-21] MEDS: ASPIRIN 81 MG CHEWABLE TABLETS PO SCH (09:39)
[2017-02-21] MEDS: QUEtiapine FUMARATE 50 MG TABLET PO SCH (09:39)
[2017-02-21] MEDS: PRENATAL VITAMINS W/ FOLIC ACID TABLET (FP) PO SCH (09:39)
[2017-02-21] MEDS: NIFEdipine E.R 60 MG TABLET (UD) PO SCH (09:39)
[2017-02-21] MEDS: IBUPROFEN 400 MG TABLET (FP) PO PRN (14:35)
[2017-02-21] MEDS: MIRTAZAPINE 15 MG TABLET (FP) PO SCH (21:05)
[2017-02-21] MEDS: SUVOREXANT 10 MG TABLET PO SCH (21:05)
[2017-02-21] MEDS: THIAMINE HCL 100 MG TABLET (FP) PO SCH (21:05)
[2017-02-21] MEDS: QUEtiapine FUMARATE 300 MG TABLET PO SCH (21:05)
[2017-02-22] MEDS: QUEtiapine FUMARATE 50 MG TABLET PO SCH (09:32)
[2017-02-22] MEDS: PRENATAL VITAMINS W/ FOLIC ACID TABLET (FP) PO SCH (09:32)
[2017-02-22] MEDS: RANITIDINE HCL 150 MG TABLET (FP) PO SCH ×2 (09:32→21:13)
[2017-02-22] MEDS: NIFEdipine E.R 60 MG TABLET (UD) PO SCH (09:32)
[2017-02-22] MEDS: ASPIRIN 81 MG CHEWABLE TABLETS PO SCH (09:32)
[2017-02-22] MEDS: hydrOXYzine PAMOATE 50 MG CAPSULE (FP) PO PRN (09:33)
[2017-02-22] MEDS: QUEtiapine FUMARATE 300 MG TABLET PO SCH (21:13)
[2017-02-22] MEDS: MIRTAZAPINE 15 MG TABLET (FP) PO SCH (21:13)
[2017-02-22] MEDS: THIAMINE HCL 100 MG TABLET (FP) PO SCH (21:15)
[2017-02-22] MEDS: SUVOREXANT 10 MG TABLET PO SCH (21:15)
[2017-02-23] MEDS: PRENATAL VITAMINS W/ FOLIC ACID TABLET (FP) PO SCH (09:47)
[2017-02-23] MEDS: RANITIDINE HCL 150 MG TABLET (FP) PO SCH ×2 (09:47→21:06)
[2017-02-23] MEDS: QUEtiapine FUMARATE 50 MG TABLET PO SCH (09:47)
[2017-02-23] MEDS: hydrOXYzine PAMOATE 50 MG CAPSULE (FP) PO PRN (09:47)
[2017-02-23] MEDS: NIFEdipine E.R 60 MG TABLET (UD) PO SCH (09:47)
[2017-02-23] MEDS: ASPIRIN 81 MG CHEWABLE TABLETS PO SCH (09:47)
[2017-02-23] MEDS: MAG HYDROX/AL HYDROX/SIMETH 30 ML UNIT-DOSE CUP PO PRN (09:48)
[2017-02-23] MEDS: MIRTAZAPINE 15 MG TABLET (FP) PO SCH (21:06)
[2017-02-23] MEDS: QUEtiapine FUMARATE 300 MG TABLET PO SCH (21:06)
[2017-02-23] MEDS: SUVOREXANT 10 MG TABLET PO SCH (21:06)
[2017-02-23] MEDS: THIAMINE HCL 100 MG TABLET (FP) PO SCH (21:06)
[2017-02-24] MEDS: QUEtiapine FUMARATE 50 MG TABLET PO SCH (10:02)
[2017-02-24] MEDS: PRENATAL VITAMINS W/ FOLIC ACID TABLET (FP) PO SCH (10:02)
[2017-02-24] MEDS: ASPIRIN 81 MG CHEWABLE TABLETS PO SCH (10:02)
[2017-02-24] MEDS: NIFEdipine E.R 60 MG TABLET (UD) PO SCH (10:02)
[2017-02-24] MEDS: RANITIDINE HCL 150 MG TABLET (FP) PO SCH ×2 (10:02→21:15)
--- NOTE | 2017-02-24 12:34 | PN ---
[facility] Progress Note Note: rash of face itching redness contact dermatitis lidex cream 0.05% bid
[2017-02-24] MEDS: FLUOCINONIDE 0.05% CREAM (60 GM TUBE) TP SCH ×2 (14:31→21:16)
[2017-02-24] MEDS: SUVOREXANT 10 MG TABLET PO SCH (21:15)
[2017-02-24] MEDS: THIAMINE HCL 100 MG TABLET (FP) PO SCH (21:15)
[2017-02-24] MEDS: QUEtiapine FUMARATE 300 MG TABLET PO SCH (21:15)
[2017-02-24] MEDS: MIRTAZAPINE 15 MG TABLET (FP) PO SCH (21:16)
[2017-02-25 06:36] VITALS: BP 124/76; PULSE 105; TEMP 98.8
[2017-02-25] MEDS: PRENATAL VITAMINS W/ FOLIC ACID TABLET (FP) PO SCH (09:54)
[2017-02-25] MEDS: QUEtiapine FUMARATE 50 MG TABLET PO SCH (09:54)
[2017-02-25] MEDS: ASPIRIN 81 MG CHEWABLE TABLETS PO SCH (09:54)
[2017-02-25] MEDS: NIFEdipine E.R 60 MG TABLET (UD) PO SCH (09:54)
[2017-02-25] MEDS: RANITIDINE HCL 150 MG TABLET (FP) PO SCH (09:54)
[2017-02-25] MEDS: FLUOCINONIDE 0.05% CREAM (60 GM TUBE) TP SCH (09:55)
--- NOTE | 2017-02-25 10:23 | PN ---
Psychiatric Progress Note Vital Signs: Vital Signs Period Temp Pulse Resp BP Sys/Graham Pulse Ox Last 24 Hr 98.8 F 105 16-18 124/76 Date of Session: 02/25/17 Chief Complaint:: discharge visit HPI: Patient has addressedcalcohol, cocaine dependence comorbid Schizophrenia, paranoid. ROS: BA,HTN,Hyperlipidemia,GERD medically managed. Current Medications: Active Medications Generic Name Dose Route Start Last Admin Trade Name Freq PRN Reason Stop Dose Admin Acetaminophen 650 mg 02/10/17 13:46 02/11/17 12:20 Tylenol - PO 650 mg Q4H PRN Administration FEVER OR PAIN Al Hydroxide/Mg Hydroxide 30 ml 02/10/17 13:46 02/23/17 09:48 Mylanta Oral Suspension - PO 30 ml Q6H PRN Administration DYSPEPSIA Albuterol Sulfate 2 puff 02/10/17 16:05 Ventolin Hfa Inhaler - IH Q4H PRN ASTHMA Aspirin 81 mg 02/11/17 10:00 02/25/17 09:54 Asa - PO 81 mg DAILY ZAKIA Administration Bupropion HCl 150 mg 02/21/17 10:00 02/25/17 09:54 Wellbutrin Xl - PO 150 mg DAILY ZAKIA Administration Diphenhydramine HCl 50 mg 02/10/17 13:46 02/15/17 21:01 Benadryl - PO 50 mg HSMR1 PRN Administration FOR ITCHING Eucalyptus/Menthol/Phenol/Sorbitol 1 each 02/10/17 13:46 Cepastat Lozenge - MM Q4H PRN SORE THROAT Fluocinonide 1 applic 02/24/17 13:00 02/25/17 09:55 Lidex 0.05% Cream - TP 1 applic BID ZAKIA Administration Guaifenesin 10 ml 02/10/17 13:46 Robitussin Dm - PO Q6H PRN COUGH Hydroxyzine Pamoate 50 mg 02/10/17 13:46 02/23/17 09:47 Vistaril - PO 50 mg Q4H PRN Administration AGITATION Ibuprofen 400 mg 02/10/17 13:46 02/21/17 14:35 Motrin - PO 400 mg Q6H PRN Administration PAIN Lidocaine HCl 20 ml 02/11/17 11:12 02/12/17 09:46 Xylocaine 2% Viscous Oral - MM 20 ml Q6HPO PRN Administration ORAL PAIN/MOUTH SORES Loperamide HCl 4 mg 02/10/17 13:46 Imodium - PO Q6H PRN DIARRHEA Magnesium Hydroxide 30 ml 02/10/17 13:46 Milk Of Magnesia - PO DAILY PRN CONSTIPATION Mirtazapine 45 mg 02/17/17 22:00 02/24/17 21:16 Remeron - PO 45 mg HS ZAKIA Administration Nifedipine 60 mg 02/11/17 10:00 02/25/17 09:54 Procardia Xl - PO 60 mg DAILY ZAKIA Administration Multivit/Folic Acid/Iron 1 tab 02/11/17 10:00 02/25/17 09:54 Vitamins (Sjr) - PO 1 tab DAILY ZAKIA Administration Pseudoephedrine/Triprolidine 1 combo 02/10/17 13:46 Actifed - PO TID PRN NASAL CONGESTION Quetiapine Fumarate 50 mg 02/11/17 10:00 02/25/17 09:54 Seroquel - PO 50 mg DAILY ZAKIA Administration Quetiapine Fumarate 600 mg 02/12/17 22:00 02/24/17 21:15 Seroquel - PO 600 mg HS ZAKIA Administration Ranitidine HCl 150 mg 02/10/17 22:00 02/25/17 09:54 Zantac - PO 150 mg BID ZAKIA Administration Thiamine HCl 100 mg 02/10/17 22:00 02/24/17 21:15 Vitamin B1 - PO 100 mg HS ZAKIA Administration Current Side Effect: No Lab tests ordered: No Lab tests reviewed: Yes Provider note:: Patient has completed today his treatment and met his identified goals, patient focused on insights he gained in this treatment and motivated to continue maintain abstinence. He rejected hospital referrals for aftercare, but reports he will attend NA meetings. He will follow-up by act team for his mental issues, scripts provided for 30 days. Patient was encouraged to take his medications as directed and continue maintain abstinence. Patient is stable for discharge today. Total face to face time:: 20 Mental Status Exam - Mental Status Exam Alert and Oriented to: Time, Place, Person Cognitive Function: Good Patient Appearance: Well Groomed Mood: Hopeful Affect: Appropriate, Mood Congruent Patient Behavior: Appropriate, Cooperative Speech Pattern: Clear, Appropriate Voice Loudness: Normal Thought Process: Intact, Goal Oriented Thought Disorder: Not Present Hallucinations: Denies Suicidal Ideation: Denies Homicidal Ideation: Denies Insight/Judgement: Fair Sleep: Fair Appetite: Good Muscle strength/Tone: Normal Gait/Station: Normal Psychiatric Treatment Plan - Problem List (1) Schizophrenia, paranoid type Current Visit: Yes (2) GERD (gastroesophageal reflux disease) Current Visit: Yes Qualifiers: Esophagitis presence: without esophagitis Qualified Code(s): K21.9 - Gastro-esophageal reflux disease without esophagitis (3) HTN (hypertension) Current Visit: Yes Qualifiers: Hypertension type: essential hypertension Qualified Code(s): I10 - Essential (primary) hypertension (4) Hypercholesterolemia Current Visit: Yes (5) Alcohol dependence Current Visit: Yes (6) Cocaine dependence Current Visit: Yes
== END 2017-02-25 11:00 | disposition home or self-care (01) | DRG 772 ==
LOC: YASAS 12:58 → Y5N 13:00
PROVIDERS: ADMIT Psychiatry & Neurology Psychiatry; ATTEND Psychiatry & Neurology Psychiatry
PROC: HZ42ZZZ Group Counseling for Substance Abuse Treatment, Cognitive-Behavioral (ICD-10-PCS; principal; 2017-02-25)
DX: F10.230 Alcohol dependence with withdrawal, uncomplicated (principal); F14.20 Cocaine dependence, uncomplicated; F20.0 Paranoid schizophrenia; I10 Essential (primary) hypertension; K21.9 Gastro-esophageal reflux disease without esophagitis; E78.00 Pure hypercholesterolemia, unspecified; R21 Rash and other nonspecific skin eruption; K02.9 Dental caries, unspecified; K05.10 Chronic gingivitis, plaque induced

== ENCOUNTER 2018-09-11 15:47 | Inpatient (IN) | payer BC ==
[2018-09-11 20:01] VITALS: BMI 29.7
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
[2018-09-11] MEDS ORDERED: P-EPHED 60MG/TRIPROLIDI 2.5MG TABLET PO PRN (21:10)
[2018-09-11] MEDS ORDERED: MAG HYDROX/AL HYDROX/SIMETH 30 ML UNIT-DOSE CUP PO PRN (21:10)
[2018-09-11] MEDS ORDERED: MENTHOL/PHENOL 1 EACH UD MM PRN (21:10)
[2018-09-11] MEDS ORDERED: ACETAMINOPHEN 325 MG TABLET (FP) PO PRN (21:10)
[2018-09-11] MEDS ORDERED: IBUPROFEN 400 MG TABLET (FP) PO PRN (21:10)
[2018-09-11] MEDS ORDERED: MAGNESIUM HYDROX 2400MG/30ML ORAL SUSPENSION 30 ML CUP PO PRN (21:10)
[2018-09-11] MEDS ORDERED: ONDANSETRON *ODT* 4 MG TABLET SL PRN (21:10)
[2018-09-11] MEDS ORDERED: hydrOXYzine PAMOATE 25 MG CAPSULE (FP) PO PRN (21:10)
[2018-09-11] MEDS ORDERED: METHOCARBAMOL 500 MG TABLET PO PRN (21:10)
[2018-09-11] MEDS ORDERED: NICOTINE POLACRILEX 2 MG GUM BUC PRN (21:10)
[2018-09-11] MEDS ORDERED: MAGNESIUM CITRATE 300 ML BOTTLE PO PRN (21:10)
[2018-09-11] MEDS ORDERED: BISMUTH SUBSALICYLATE 524 MG/30 ML UD PO PRN (21:10)
[2018-09-11] MEDS ORDERED: guaiFENesin 200 MG/10 ML 10 ML UNIT-DOSE CUPS PO PRN (21:10)
[2018-09-11] MEDS ORDERED: chlordiazePOXIDE HCL 25 MG CAPSULE PO PRN (21:10)
[2018-09-11] MEDS: chlordiazePOXIDE HCL 25 MG CAPSULE PO SCH (23:27)
[2018-09-11] MEDS: THIAMINE HCL 100 MG TABLET (FP) PO SCH (23:29)
[2018-09-11] MEDS: MELATONIN 5 MG TABLETS PO PRN (23:31)
[2018-09-12] MEDS: chlordiazePOXIDE HCL 25 MG CAPSULE PO SCH ×4 (06:17→22:38)
[2018-09-12] MEDS: PRENATAL VITAMINS W/ FOLIC ACID TABLET (FP) PO SCH (10:31)
--- NOTE | 2018-09-12 10:33 | PN ---
[facility] CIWA - CIWA Score Nausea/Vomitin Muscle Tremors: 3 Anxiety: 2 Agitation: 2 Paroxysmal Sweats: 2 Orientation: 0-Oriented Tacttile Disturbances: 1-Very Mild Itch/Numbness Auditory Disturbances: 0-None Visual Disturbances: 0-None Headache: 2-Mild CIWA-Ar Total Score: 14 [facility] Progress Note (SOAP) Subjective: Shakes, tremors, malaise Objective: 09/12/18 10:32 Last Vital Signs Temp Pulse Resp BP Pulse Ox 97.7 F 96 H 18 122/74 09/12/18 09:59 09/12/18 09:59 09/12/18 09:59 09/12/18 09:59 Labs pending Assessment: 09/12/18 10:32 Withdrawal sx Plan: Continue detox
[2018-09-12 10:50] LABS: HEMATOCRIT 41.9 % (35.4-49); HEMOGLOBIN 14.4 GM/dL (11.7-16.9); MCH 31.3 pg (25.7-33.7); MCHC 34.3 g/dl (32.0-35.9); MEAN CELL VOLUME 91.2 fl (80-96); MEAN PLT VOLUME 9.5 fl (7.5-11.1); PLATELET COUNT 356 K/MM3 (134-434); RBC 4.59 M/mm3 (4.00-5.60); RDW 14.8 % (11.9-15.9)
[2018-09-12] MEDS: NICOTINE 21 MG/24 HOURS TOPICAL PATCH TD SCH (10:55)
[2018-09-12 11:00] LABS: ALBUMIN 3.6 g/dl (3.4-5.0); ALK PHOS 56 U/L (45-117); ANION GAP 7 MMOL/L (8-16); BILIRUBIN,TOTAL 0.4 mg/dL (0.2-1); BLOOD UREA NITROGEN 8 mg/dL (7-18); CALCIUM 9.1 mg/dL (8.5-10.1); CHLORIDE 108 mmol/L (98-107); CO2 25 mmol/L (21-32); CREATININE 0.8 mg/dL (0.55-1.3); GLUCOSE,RANDOM 85 mg/dL (74-106); POTASSIUM 4.3 mmol/L (3.5-5.1); SGOT/AST 25 U/L (15-37); SGPT/ALT 46 U/L (13-61); SODIUM 140 mmol/L (136-145); TOT PROT 6.8 g/dl (6.4-8.2)
[2018-09-12 13:01] LABS: URINE APPEARANCE CLEAR; URINE BILIRUBIN NEGATIVE (<2.0 mg/dL); URINE COLOR LTYELLOW; URINE GLUCOSE (UA) NEGATIVE (NEGATIVE); URINE KETONE NEGATIVE (NEGATIVE); URINE LEUK ESTERASE NEGATIVE (NEGATIVE); URINE NITRITE NEGATIVE (NEGATIVE); URINE PROTEIN NEGATIVE (NEGATIVE); URINE UROBILINOGEN NEGATIVE mg/dL (0.2-1.0)
--- NOTE | 2018-09-12 13:09 | EKG ---
Test Reason : Blood Pressure : / mmHG Vent. Rate : 106 BPM Atrial Rate : 106 BPM P-R Int : 112 ms QRS Dur : 078 ms QT Int : 334 ms P-R-T Axes : 068 079 044 degrees QTc Int : 443 ms SINUS TACHYCARDIA NONSPECIFIC T WAVE ABNORMALITY ABNORMAL ECG WHEN COMPARED WITH ECG OF 06-FEB-2017 13:01, NO SIGNIFICANT CHANGE WAS FOUND Confirmed by MD CHOLO, LEWIS ([id number]) on 09/12/2018 1:08:36 PM Referred By: Confirmed By:LEWIS EMMANUEL MD
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
[2018-09-12] MEDS: BENZTROPINE MESYLATE 1 MG TABLET (FP) PO SCH (22:38)
[2018-09-12] MEDS: RANITIDINE HCL 150 MG TABLET (FP) PO SCH (22:38)
[2018-09-12] MEDS: THIAMINE HCL 100 MG TABLET (FP) PO SCH (22:38)
[2018-09-12] MEDS: traZODone HCL 50 MG TABLET (FP) PO SCH (22:38)
[2018-09-12] MEDS: MELATONIN 5 MG TABLETS PO PRN (22:38)
[2018-09-13] MEDS: chlordiazePOXIDE HCL 25 MG CAPSULE PO SCH ×3 (06:28→17:11)
[2018-09-13] MEDS: RANITIDINE HCL 150 MG TABLET (FP) PO SCH ×2 (10:29→22:14)
[2018-09-13] MEDS: SERTRALINE HCL 50 MG TABLET (FP) PO SCH (10:29)
[2018-09-13] MEDS: BENZTROPINE MESYLATE 1 MG TABLET (FP) PO SCH ×2 (10:29→22:14)
[2018-09-13] MEDS: PRENATAL VITAMINS W/ FOLIC ACID TABLET (FP) PO SCH (10:29)
[2018-09-13] MEDS: ARIPiprazole 5 MG TABLET (FP) PO SCH (10:30)
[2018-09-13] MEDS: NICOTINE 21 MG/24 HOURS TOPICAL PATCH TD SCH (10:30)
[2018-09-13] MEDS: NIFEdipine E.R. 30 MG TABLET (FP) PO SCH (10:31)
--- NOTE | 2018-09-13 12:30 | PN ---
[facility] CIWA - CIWA Score Nausea/Vomitin-Mild Nausea/No Vomiting Muscle Tremors: 3 Anxiety: 3 Agitation: 3 Paroxysmal Sweats: 2 Orientation: 0-Oriented Tacttile Disturbances: 0-None Auditory Disturbances: 0-None Visual Disturbances: 0-None Headache: 0-None Present CIWA-Ar Total Score: 12 S Progress Note (SOAP) Subjective: fatigue, chills, sweats Objective: 09/13/18 12:28 Vital Signs Temperature 98.2 F 09/13/18 09:31 Pulse Rate 81 09/13/18 09:31 Respiratory Rate 16 09/13/18 09:31 Blood Pressure 113/76 09/13/18 09:31 O2 Sat by Pulse Oximetry (%) Laboratory Last Values WBC 7.0 K/mm3 (4.0-10.0) 09/12/18 07:50 RBC 4.59 M/mm3 (4.00-5.60) 09/12/18 07:50 Hgb 14.4 GM/dL (11.7-16.9) 09/12/18 07:50 Hct 41.9 % (35.4-49) 09/12/18 07:50 MCV 91.2 fl (80-96) 09/12/18 07:50 MCH 31.3 pg (25.7-33.7) 09/12/18 07:50 MCHC 34.3 g/dl (32.0-35.9) 09/12/18 07:50 RDW 14.8 % (11.9-15.9) 09/12/18 07:50 Plt Count 356 K/MM3 (134-434) 09/12/18 07:50 MPV 9.5 fl (7.5-11.1) 09/12/18 07:50 Sodium 140 mmol/L (136-145) 09/12/18 07:50 Potassium 4.3 mmol/L (3.5-5.1) 09/12/18 07:50 Chloride 108 mmol/L (98-107) H 09/12/18 07:50 Carbon Dioxide 25 mmol/L (21-32) 09/12/18 07:50 Anion Gap 7 MMOL/L (8-16) L 09/12/18 07:50 BUN 8 mg/dL (7-18) 09/12/18 07:50 Creatinine 0.8 mg/dL (0.55-1.3) 09/12/18 07:50 Creat Clearance w eGFR 105.01 (>60) 09/12/18 07:50 Random Glucose 85 mg/dL (74-106) 09/12/18 07:50 Calcium 9.1 mg/dL (8.5-10.1) 09/12/18 07:50 Total Bilirubin 0.4 mg/dL (0.2-1) 09/12/18 07:50 AST 25 U/L (15-37) 09/12/18 07:50 ALT 46 U/L (13-61) 09/12/18 07:50 Alkaline Phosphatase 56 U/L (45-117) 09/12/18 07:50 Total Protein 6.8 g/dl (6.4-8.2) 09/12/18 07:50 Albumin 3.6 g/dl (3.4-5.0) 09/12/18 07:50 Urine Color Ltyellow 09/12/18 11:03 Urine Appearance Clear 09/12/18 11:03 Urine pH 7.0 (5.0-8.0) 09/12/18 11:03 Ur Specific [place] 1.011 (1.010-1.035) 09/12/18 11:03 Urine Protein Negative (NEGATIVE) 09/12/18 11:03 Urine Glucose (UA) Negative (NEGATIVE) 09/12/18 11:03 Urine Ketones Negative (NEGATIVE) 09/12/18 11:03 Urine Blood Negative (NEGATIVE) 09/12/18 11:03 Urine Nitrite Negative (NEGATIVE) 09/12/18 11:03 Urine Bilirubin Negative (<2.0 mg/dL) 09/12/18 11:03 Urine Urobilinogen Negative mg/dL (0.2-1.0) 09/12/18 11:03 Ur Leukocyte Esterase Negative (NEGATIVE) 09/12/18 11:03 RPR Titer Nonreactive (NONREACTIVE) 09/12/18 07:50 HIV 1&2 Antibody Screen Negative 09/12/18 07:50 HIV P24 Antigen Negative 09/12/18 07:50 labs noted Assessment: 09/13/18 12:28 Aox3 no distress no adventitious breath sounds full ROM withdrawal symptoms Plan: increase po fluids continue detox continue to monitor
[2018-09-13] MEDS: MELATONIN 5 MG TABLETS PO PRN (22:14)
[2018-09-13] MEDS: THIAMINE HCL 100 MG TABLET (FP) PO SCH (22:14)
[2018-09-13] MEDS: traZODone HCL 50 MG TABLET (FP) PO SCH (22:15)
[2018-09-13] MEDS: chlordiazePOXIDE HCL 10 MG CAPSULE PO SCH (22:15)
[2018-09-14] MEDS: chlordiazePOXIDE HCL 10 MG CAPSULE PO SCH ×4 (05:31→22:16)
[2018-09-14 09:59] LABS: BASO % 0.9 % (0-2.0); EOS % 4.1 % (0-4.5); HEMOGLOBIN 13.9 GM/dL (11.7-16.9); LYMPH % 30.2 % (8-40); MCH 31.5 pg (25.7-33.7); MCHC 34.6 g/dl (32.0-35.9); MEAN PLT VOLUME 9.7 fl (7.5-11.1); MONO % 8.1 % (3.8-10.2); NEUT % 56.7 % (42.8-82.8); PLATELET COUNT 327 K/MM3 (134-434); RDW 14.6 % (11.9-15.9); WHITE BLOOD COUNT 6.8 K/mm3 (4.0-10.0)
[2018-09-14] MEDS: BENZTROPINE MESYLATE 1 MG TABLET (FP) PO SCH ×2 (10:09→22:16)
[2018-09-14] MEDS: ARIPiprazole 5 MG TABLET (FP) PO SCH (10:09)
[2018-09-14] MEDS: SERTRALINE HCL 50 MG TABLET (FP) PO SCH (10:09)
[2018-09-14] MEDS: NIFEdipine E.R. 30 MG TABLET (FP) PO SCH (10:09)
[2018-09-14] MEDS: RANITIDINE HCL 150 MG TABLET (FP) PO SCH ×2 (10:09→22:16)
[2018-09-14] MEDS: PRENATAL VITAMINS W/ FOLIC ACID TABLET (FP) PO SCH (10:09)
[2018-09-14] MEDS: NICOTINE 21 MG/24 HOURS TOPICAL PATCH TD SCH (10:10)
--- NOTE | 2018-09-14 12:49 | PN ---
S Progress Note (SOAP) Subjective: Fatigue, Tremors. Objective: PATIENT A & O X 2 (UNCERTAIN ABOUT CURRENT DAY / DATE). PATIENT OBSERVED AMBULATING ON UNIT. IN NO ACUTE DISTRESS. 09/14/18 12:47 Vital Signs Temperature 98.1 F 09/14/18 09:13 Pulse Rate 75 09/14/18 09:13 Respiratory Rate 18 09/14/18 09:13 Blood Pressure 107/60 09/14/18 09:13 O2 Sat by Pulse Oximetry (%) Laboratory Tests 09/12/18 09/12/18 09/12/18 07:50 07:50 07:50 WBC 7.0 RBC 4.59 Hgb 14.4 Hct 41.9 MCV 91.2 MCH 31.3 MCHC 34.3 RDW 14.8 Plt Count 356 MPV 9.5 Absolute Neuts (auto) Neutrophils % Lymphocytes % Monocytes % Eosinophils % Basophils % Nucleated RBC % Sodium 140 Potassium 4.3 Chloride 108 H Carbon Dioxide 25 Anion Gap 7 L BUN 8 Creatinine 0.8 Creat Clearance w eGFR 105.01 Random Glucose 85 Calcium 9.1 Total Bilirubin 0.4 AST 25 ALT 46 Alkaline Phosphatase 56 Total Protein 6.8 Albumin 3.6 Urine Color Urine Appearance Urine pH Ur Specific [place] Urine Protein Urine Glucose (UA) Urine Ketones Urine Blood Urine Nitrite Urine Bilirubin Urine Urobilinogen Ur Leukocyte Esterase RPR Titer Nonreactive HIV 1&2 Antibody Screen HIV P24 Antigen 09/12/18 09/12/18 09/14/18 07:50 11:03 07:40 WBC 6.8 RBC 4.40 Hgb 13.9 Hct 40.0 MCV 91.0 MCH 31.5 MCHC 34.6 RDW 14.6 Plt Count 327 MPV 9.7 Absolute Neuts (auto) 3.9 Neutrophils % 56.7 Lymphocytes % 30.2 Monocytes % 8.1 Eosinophils % 4.1 Basophils % 0.9 Nucleated RBC % 0 Sodium Potassium Chloride Carbon Dioxide Anion Gap BUN Creatinine Creat Clearance w eGFR Random Glucose Calcium Total Bilirubin AST ALT Alkaline Phosphatase Total Protein Albumin Urine Color Ltyellow Urine Appearance Clear Urine pH 7.0 Ur Specific [place] 1.011 Urine Protein Negative Urine Glucose (UA) Negative Urine Ketones Negative Urine Blood Negative Urine Nitrite Negative Urine Bilirubin Negative Urine Urobilinogen Negative Ur Leukocyte Esterase Negative RPR Titer HIV 1&2 Antibody Screen Negative HIV P24 Antigen Negative LABS NOTED. Assessment: 09/14/18 12:48 WITHDRAWAL SYMPTOMS. Plan: CONTINUE DETOX. PATIENT SCHEDULED FOR D/C TOMORROW.
--- NOTE | 2018-09-14 14:29 | PN ---
S Progress Note Note: Psychiatry Attending's note : CBC with differential results (09/14/18) : reviewed. Absolute neutrophils = 3.9 WBC = 6.9. Cake Froster called Joelle Cloud at [phone]. Not available.
[2018-09-14] MEDS: traZODone HCL 50 MG TABLET (FP) PO SCH (22:16)
[2018-09-14] MEDS: THIAMINE HCL 100 MG TABLET (FP) PO SCH (22:16)
--- NOTE | 2018-09-15 08:43 | DS ---
[facility] Detox Discharge Summary Admission Date: 09/11/18 Discharge Date: 09/15/18 - History Present History: Alcohol Dependence, Cocaine Dependence - Physical Exam Results Vital Signs: Vital Signs Temperature 98.1 F 09/15/18 06:39 Pulse Rate 69 09/15/18 06:39 Respiratory Rate 18 09/15/18 06:39 Blood Pressure 105/65 09/15/18 06:39 O2 Sat by Pulse Oximetry (%) - Treatment Hospital Course: Detox Protocol Followed, Detoxed Safely, Responded well, Discharged Condition Good, Rehab Referral Accepted - Medication Discharge Medications: Ambulatory Orders Aripiprazole [Abilify -] 5 mg PO DAILY 09/11/18 Benztropine Mesylate [Cogentin -] 1 mg PO BID 09/11/18 Clozapine [Clozaril -] 100 mg PO DAILY 09/11/18 Sertraline HCl [Zoloft -] 100 mg PO DAILY 09/11/18 traZODone HCL [Desyrel -] 50 mg PO HS 09/11/18 - Diagnosis (1) Alcohol dependence with uncomplicated withdrawal Current Visit: Yes Status: Chronic (2) At risk for dehydration due to poor fluid intake Current Visit: Yes Status: Acute (3) Cocaine abuse, uncomplicated Current Visit: Yes Status: Chronic (4) Asthma Current Visit: Yes Status: Chronic Qualifiers: Asthma severity: mild intermittent Asthma complication type: uncomplicated Qualified Code(s): J45.20 - Mild intermittent asthma, uncomplicated (5) Cocaine dependence Current Visit: Yes Status: Chronic Qualifiers: Substance use status: uncomplicated Qualified Code(s): F14.20 - Cocaine dependence, uncomplicated (6) Depressed affect Current Visit: Yes Status: Chronic (7) GERD (gastroesophageal reflux disease) Current Visit: Yes Status: Chronic Qualifiers: Esophagitis presence: without esophagitis Qualified Code(s): K21.9 - Gastro -esophageal reflux disease without esophagitis (8) HTN (hypertension) Current Visit: Yes Status: Chronic Qualifiers: Hypertension type: essential hypertension Qualified Code(s): I10 - Essential (primary) hypertension (9) Hypercholesterolemia Current Visit: Yes Status: Chronic (10) Insomnia Current Visit: Yes Status: Chronic (11) Nicotine dependence Current Visit: Yes Status: Chronic Qualifiers: Nicotine product type: cigarettes Substance use status: uncomplicated Qualified Code(s): F17.210 - Nicotine dependence, cigarettes, uncomplicated (12) Schizoaffective disorder Current Visit: Yes Status: Chronic Qualifiers: Schizoaffective disorder type: depressive Qualified Code(s): F25.1 - Schizoaffective disorder, depressive type (13) Schizophrenia Current Visit: Yes Status: Chronic (14) Substance induced mood disorder Current Visit: Yes Status: Chronic (15) Alcohol dependence Current Visit: No Status: Acute (16) Dental cavity Current Visit: No Status: Acute (17) Facial rash Current Visit: No Status: Acute (18) Gingivitis Current Visit: No Status: Acute (19) Schizophrenia, paranoid type Current Visit: No Status: Acute - AMA Did Patient Leave Against Medical Advice: No ([facility])
[2018-09-15 09:27] VITALS: BP 131/75; PULSE 71; TEMP 98.2
[2018-09-15] MEDS: NIFEdipine E.R. 30 MG TABLET (FP) PO SCH (10:10)
[2018-09-15] MEDS: PRENATAL VITAMINS W/ FOLIC ACID TABLET (FP) PO SCH (10:10)
[2018-09-15] MEDS: BENZTROPINE MESYLATE 1 MG TABLET (FP) PO SCH (10:10)
[2018-09-15] MEDS: SERTRALINE HCL 50 MG TABLET (FP) PO SCH (10:10)
[2018-09-15] MEDS: RANITIDINE HCL 150 MG TABLET (FP) PO SCH (10:10)
[2018-09-15] MEDS: ARIPiprazole 5 MG TABLET (FP) PO SCH (10:10)
[2018-09-15] MEDS: NICOTINE 21 MG/24 HOURS TOPICAL PATCH TD SCH (10:11)
[2018-09-15] MEDS: chlordiazePOXIDE HCL 10 MG CAPSULE PO SCH (10:13)
== END 2018-09-15 12:42 | disposition home or self-care (01) | DRG 774 ==
LOC: YASAS 15:47 → Y6N 22:48
PROVIDERS: ADMIT Surgery; ATTEND Surgery
PROC: HZ2ZZZZ Detoxification Services for Substance Abuse Treatment (ICD-10-PCS; principal; 2018-09-11)
DX: F10.230 Alcohol dependence with withdrawal, uncomplicated (principal); F14.20 Cocaine dependence, uncomplicated; F17.210 Nicotine dependence, cigarettes, uncomplicated; F25.9 Schizoaffective disorder, unspecified; F20.0 Paranoid schizophrenia; I10 Essential (primary) hypertension; E78.00 Pure hypercholesterolemia, unspecified; G47.00 Insomnia, unspecified; J45.909 Unspecified asthma, uncomplicated; K21.9 Gastro-esophageal reflux disease without esophagitis; K05.10 Chronic gingivitis, plaque induced; K02.9 Dental caries, unspecified; R45.89 Other symptoms and signs involving emotional state; Z91.89 Other specified personal risk factors, not elsewhere classified; Z91.5 Personal history of self-harm; Z88.8 Allergy status to other drugs, medicaments and biological substances
CPT/HCPCS: 36415; 80053; 81003; 85025; 85027; 86593; 87389; 93005; 93010

== ENCOUNTER 2018-12-18 11:46 | Inpatient (IN) | payer BC ==
[2018-12-18 20:21] VITALS: BMI 26.6
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
[2018-12-18] MEDS ORDERED: ACETAMINOPHEN 325 MG TABLET (FP) PO PRN ×2 (22:24)
[2018-12-18] MEDS ORDERED: IBUPROFEN 400 MG TABLET (FP) PO PRN (22:24)
[2018-12-18] MEDS ORDERED: MAGNESIUM CITRATE 300 ML BOTTLE PO PRN (22:24)
[2018-12-18] MEDS ORDERED: MENTHOL/PHENOL 1 EACH UD MM PRN (22:24)
[2018-12-18] MEDS ORDERED: METHOCARBAMOL 500 MG TABLET PO PRN (22:24)
[2018-12-18] MEDS ORDERED: MELATONIN 5 MG TABLETS PO PRN (22:24)
[2018-12-18] MEDS ORDERED: MAG HYDROX/AL HYDROX/SIMETH 30 ML UNIT-DOSE CUP PO PRN (22:24)
[2018-12-18] MEDS ORDERED: chlordiazePOXIDE HCL 25 MG CAPSULE PO ONE (22:24)
[2018-12-18] MEDS ORDERED: MAGNESIUM HYDROX 2400MG/30ML ORAL SUSPENSION 30 ML CUP PO PRN (22:24)
[2018-12-18] MEDS ORDERED: chlordiazePOXIDE HCL 10 MG CAPSULE PO PRN (22:24)
[2018-12-18] MEDS ORDERED: guaiFENesin 200 MG/10 ML 10 ML UNIT-DOSE CUPS PO PRN (22:24)
[2018-12-18] MEDS ORDERED: BISMUTH SUBSALICYLATE 524 MG/30 ML UD PO PRN (22:24)
[2018-12-18] MEDS ORDERED: BACITRACIN 15 GM TUBE TOPICAL OINTMENT TP PRN (22:27)
[2018-12-18] MEDS ORDERED: IBUPROFEN 600 MG TABLET (FP) PO PRN (23:00)
[2018-12-18] MEDS: chlordiazePOXIDE HCL 25 MG CAPSULE PO SCH (23:49)
[2018-12-18] MEDS: ALBUTEROL SO4 0.083% IH SOL 2.5 MG/3 ML VIAL.NEB. NEB SCH (23:53)
[2018-12-19 04:06] LABS: URINE APPEARANCE CLEAR; URINE BILIRUBIN NEGATIVE (NEGATIVE); URINE COLOR YELLOW; URINE GLUCOSE (UA) NEGATIVE (NEGATIVE); URINE KETONE NEGATIVE (NEGATIVE); URINE LEUK ESTERASE NEGATIVE (NEGATIVE); URINE NITRITE NEGATIVE (NEGATIVE); URINE PROTEIN NEGATIVE (NEGATIVE)
[2018-12-19] MEDS: chlordiazePOXIDE 5 MG CAPSULE PO SCH ×3 (05:56→22:25)
--- NOTE | 2018-12-19 09:56 | PN ---
S CIWA - CIWA Score Nausea/Vomitin-No Nausea/No Vomiting Muscle Tremors: 2 Anxiety: 2 Agitation: 2 Paroxysmal Sweats: 3 Orientation: 0-Oriented Tacttile Disturbances: 0-None Auditory Disturbances: 0-None Visual Disturbances: 0-None Headache: 1-Very Mild CIWA-Ar Total Score: 10 BHS Progress Note (SOAP) Subjective: c/o chills, mild headache, and anxiety. Objective: 12/19/18 09:55 Vital Signs 12/19/18 12/19/18 12/19/18 03:30 06:27 06:30 Temperature 98.9 F Pulse Rate 57 L Respiratory 18 18 18 Rate Blood Pressure 97/66 12/19/18 09:45 Temperature 99.1 F Pulse Rate 71 Respiratory 18 Rate Blood Pressure 92/64 Labs pending. Assessment: 12/19/18 09:56 AOX3, in no acute distress. Full rom, ambulates in the unit. withdrawal signs Plan: continue detox.
[2018-12-19] MEDS ORDERED: ALBUTEROL SO4 8 GM HFA INHALER IH PRN (10:00)
[2018-12-19] MEDS ORDERED: PATIENT'S OWN MEDICATION (NON-FORMULARY) (Fluticasone Propionate [Flovent Diskus] 2 PUFF) IH SCH (10:00)
[2018-12-19] MEDS: PRENATAL VITAMINS W/ FOLIC ACID TABLET (FP) PO SCH (10:25)
[2018-12-19] MEDS: NIFEdipine E.R 60 MG TABLET (UD) PO SCH (10:26)
[2018-12-19] MEDS: RANITIDINE HCL 150 MG TABLET (FP) PO SCH ×2 (10:26→22:25)
[2018-12-19] MEDS: NICOTINE 14 MG/24 HOURS TOPICAL PATCH TD SCH (10:26)
[2018-12-19] MEDS: ALBUTEROL SO4 0.083% IH SOL 2.5 MG/3 ML VIAL.NEB. NEB SCH (10:27)
[2018-12-19 10:42] LABS: ALBUMIN 3.3 g/dl (3.4-5.0); BILIRUBIN,TOTAL 0.2 mg/dL (0.2-1); BLOOD UREA NITROGEN 6.5 mg/dL (7-18); CALCIUM 8.7 mg/dL (8.5-10.1); CREATININE 0.8 mg/dL (0.55-1.3); POTASSIUM 4.4 mmol/L (3.5-5.1)
[2018-12-19 10:43] LABS: HEMATOCRIT 41.8 % (35.4-49); HEMOGLOBIN 14.1 GM/dL (11.7-16.9); MCH 31.1 pg (25.7-33.7); MCHC 33.7 g/dl (32.0-35.9); MEAN CELL VOLUME 92.2 fl (80-96); MEAN PLT VOLUME 10.1 fl (7.5-11.1); PLATELET COUNT 358 K/MM3 (134-434); RBC 4.53 M/mm3 (4.00-5.60); RDW 14.7 % (11.9-15.9); WHITE BLOOD COUNT 7.5 K/mm3 (4.0-10.0)
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
--- NOTE | 2018-12-19 12:35 | EKG ---
Test Reason : Blood Pressure : / mmHG Vent. Rate : 060 BPM Atrial Rate : 060 BPM P-R Int : 110 ms QRS Dur : 092 ms QT Int : 470 ms P-R-T Axes : 058 066 054 degrees QTc Int : 470 ms SINUS RHYTHM WITH SHORT AR INCOMPLETE RBBB Confirmed by STEPHON BEYER MD ([id number]) on 12/19/2018 12:35:27 PM Referred By: Confirmed By:STEPHON BEYER MD
[2018-12-19] MEDS ORDERED: traZODone HCL 100 MG TABLET (FP) PO SCH (22:00)
[2018-12-19] MEDS: THIAMINE HCL 100 MG TABLET (FP) PO SCH (22:25)
[2018-12-19] MEDS: BENZTROPINE MESYLATE 1 MG TABLET (FP) PO SCH (22:25)
[2018-12-19] MEDS: traZODone HCL 100 MG TABLET (FP) PO SCH (22:25)
[2018-12-20] MEDS ORDERED: chlordiazePOXIDE HCL 10 MG CAPSULE PO PRN (05:00)
[2018-12-20] MEDS: chlordiazePOXIDE HCL 10 MG CAPSULE PO SCH ×3 (05:59→21:58)
[2018-12-20] MEDS: NIFEdipine E.R 60 MG TABLET (UD) PO SCH (10:29)
[2018-12-20] MEDS: BENZTROPINE MESYLATE 1 MG TABLET (FP) PO SCH ×2 (10:29→21:58)
[2018-12-20] MEDS: ARIPiprazole 10 MG TABLET PO SCH (10:29)
[2018-12-20] MEDS: RANITIDINE HCL 150 MG TABLET (FP) PO SCH ×2 (10:29→21:58)
[2018-12-20] MEDS: SERTRALINE HCL 50 MG TABLET (FP) PO SCH (10:29)
[2018-12-20] MEDS: PRENATAL VITAMINS W/ FOLIC ACID TABLET (FP) PO SCH (10:30)
[2018-12-20] MEDS: NICOTINE 14 MG/24 HOURS TOPICAL PATCH TD SCH (10:30)
[2018-12-20] MEDS: NICOTINE POLACRILEX 2 MG GUM BUC PRN (11:22)
--- NOTE | 2018-12-20 13:19 | PN ---
S CIWA - CIWA Score Nausea/Vomitin-Mild Nausea/No Vomiting Muscle Tremors: 2 Anxiety: 1-Mildly Anxious Agitation: 2 Paroxysmal Sweats: No Perspiration Orientation: 0-Oriented Tacttile Disturbances: 1-Very Mild Itch/Numbness Auditory Disturbances: 0-None Visual Disturbances: 1-Very Mild Sensitivity Headache: 1-Very Mild CIWA-Ar Total Score: 9 BHS Progress Note (SOAP) Subjective: CHILL SWEATS POOR SLEEP Objective: Laboratory Tests 12/18/18 12/19/18 12/19/18 23:50 08:00 08:00 WBC 7.5 RBC 4.53 Hgb 14.1 Hct 41.8 MCV 92.2 MCH 31.1 MCHC 33.7 RDW 14.7 Plt Count 358 MPV 10.1 Sodium 141 Potassium 4.4 Chloride 109 H Carbon Dioxide 27 Anion Gap 5 L BUN 6.5 L Creatinine 0.8 Est GFR (CKD-EPI)AfAm 125.92 Est GFR (CKD-EPI)NonAf 108.65 Random Glucose 97 Calcium 8.7 Total Bilirubin 0.2 AST 12 L ALT 16 Alkaline Phosphatase 73 Total Protein 6.0 L Albumin 3.3 L Urine Color Yellow Urine Appearance Clear Urine pH 7.0 Ur Specific [place] 1.013 Urine Protein Negative Urine Glucose (UA) Negative Urine Ketones Negative Urine Blood Negative Urine Nitrite Negative Urine Bilirubin Negative Urine Urobilinogen 1.0 Ur Leukocyte Esterase Negative RPR Titer 12/19/18 08:00 WBC RBC Hgb Hct MCV MCH MCHC RDW Plt Count MPV Sodium Potassium Chloride Carbon Dioxide Anion Gap BUN Creatinine Est GFR (CKD-EPI)AfAm Est GFR (CKD-EPI)NonAf Random Glucose Calcium Total Bilirubin AST ALT Alkaline Phosphatase Total Protein Albumin Urine Color Urine Appearance Urine pH Ur Specific [place] Urine Protein Urine Glucose (UA) Urine Ketones Urine Blood Urine Nitrite Urine Bilirubin Urine Urobilinogen Ur Leukocyte Esterase RPR Titer Nonreactive Vital Signs - 24 hr 12/19/18 12/19/18 12/19/18 13:45 17:41 22:11 Temperature 99.6 F 97.9 F 97.5 F L Pulse Rate 71 78 76 Respiratory 18 18 18 Rate Blood Pressure 101/66 109/69 99/67 12/20/18 12/20/18 12/20/18 00:30 03:30 06:28 Temperature 98.2 F Pulse Rate 71 Respiratory 18 18 18 Rate Blood Pressure 107/69 12/20/18 12/20/18 09:18 13:11 Temperature 97.0 F L 97.5 F L Pulse Rate 69 64 Respiratory 18 18 Rate Blood Pressure 109/71 113/72 Assessment: 12/20/18 13:19 ACUTE WITHDRAWAL Plan: CONTINUE DETOX PROTOCOL
[2018-12-20] MEDS: traZODone HCL 100 MG TABLET (FP) PO SCH (21:58)
[2018-12-20] MEDS: THIAMINE HCL 100 MG TABLET (FP) PO SCH (21:58)
[2018-12-21] MEDS: chlordiazePOXIDE HCL 10 MG CAPSULE PO SCH (05:47)
[2018-12-21] MEDS: NICOTINE POLACRILEX 2 MG GUM BUC PRN (09:20)
[2018-12-21] MEDS: RANITIDINE HCL 150 MG TABLET (FP) PO SCH (10:38)
[2018-12-21] MEDS: SERTRALINE HCL 50 MG TABLET (FP) PO SCH (10:38)
[2018-12-21] MEDS: NICOTINE 14 MG/24 HOURS TOPICAL PATCH TD SCH (10:38)
[2018-12-21] MEDS: BENZTROPINE MESYLATE 1 MG TABLET (FP) PO SCH (10:38)
[2018-12-21] MEDS: PRENATAL VITAMINS W/ FOLIC ACID TABLET (FP) PO SCH (10:38)
[2018-12-21] MEDS: NIFEdipine E.R 60 MG TABLET (UD) PO SCH (10:38)
[2018-12-21] MEDS: ARIPiprazole 10 MG TABLET PO SCH (13:05)
[2018-12-21 13:20] VITALS: BP 102/67; PULSE 64; TEMP 98.5
--- NOTE | 2018-12-21 19:07 | DS ---
[facility] Detox Discharge Summary Admission Date: 12/18/18 Discharge Date: 12/21/18 - History Present History: Alcohol Dependence, Cannabis Dependence, Cocaine Dependence Additional Comments: PATIENT GOING TO [facility] ([place], [place]) FOR AFTERCARE. PATIENT WAS DISCHARGED FROM DETOX UNIT IN STABLE MEDICAL CONDITION. Pertinent Past History: Asthma, G.E.R.D., HTN, Nicotine Dependence, Mass Of Cheek, Hyperlipidemia, History Of Left Shoulder Pain, Anxiety, Insomnia, Schizoaffective Disorder, Schizophrenia, Insomnia. - Physical Exam Results Vital Signs: Vital Signs Temperature 98.5 F 12/21/18 13:20 Pulse Rate 64 12/21/18 13:20 Respiratory Rate 18 12/21/18 13:20 Blood Pressure 102/67 12/21/18 13:20 O2 Sat by Pulse Oximetry (%) Pertinent Admission Physical Exam Findings: WITHDRAWAL SYMPTOMS. Laboratory Tests 12/18/18 12/19/18 12/19/18 23:50 08:00 08:00 WBC 7.5 RBC 4.53 Hgb 14.1 Hct 41.8 MCV 92.2 MCH 31.1 MCHC 33.7 RDW 14.7 Plt Count 358 MPV 10.1 Sodium 141 Potassium 4.4 Chloride 109 H Carbon Dioxide 27 Anion Gap 5 L BUN 6.5 L Creatinine 0.8 Est GFR (CKD-EPI)AfAm 125.92 Est GFR (CKD-EPI)NonAf 108.65 Random Glucose 97 Calcium 8.7 Total Bilirubin 0.2 AST 12 L ALT 16 Alkaline Phosphatase 73 Total Protein 6.0 L Albumin 3.3 L Urine Color Yellow Urine Appearance Clear Urine pH 7.0 Ur Specific [place] 1.013 Urine Protein Negative Urine Glucose (UA) Negative Urine Ketones Negative Urine Blood Negative Urine Nitrite Negative Urine Bilirubin Negative Urine Urobilinogen 1.0 Ur Leukocyte Esterase Negative RPR Titer 12/19/18 08:00 WBC RBC Hgb Hct MCV MCH MCHC RDW Plt Count MPV Sodium Potassium Chloride Carbon Dioxide Anion Gap BUN Creatinine Est GFR (CKD-EPI)AfAm Est GFR (CKD-EPI)NonAf Random Glucose Calcium Total Bilirubin AST ALT Alkaline Phosphatase Total Protein Albumin Urine Color Urine Appearance Urine pH Ur Specific [place] Urine Protein Urine Glucose (UA) Urine Ketones Urine Blood Urine Nitrite Urine Bilirubin Urine Urobilinogen Ur Leukocyte Esterase RPR Titer Nonreactive LABS NOTED. - Treatment Hospital Course: Detox Protocol Followed, Detoxed Safely, Responded well, Discharged Condition Good, Rehab Referral Accepted Patient has Accepted a Rehab Referral to: [facility] ([place], [place]). - Medication Discharge Medications: Ambulatory Orders Aripiprazole [Abilify -] 30 mg PO DAILY 09/11/18 Benztropine Mesylate [Cogentin -] 1 mg PO BID 09/11/18 Sertraline HCl [Zoloft -] 100 mg PO DAILY 09/11/18 traZODone HCL [Desyrel -] 200 mg PO HS 09/11/18 Albuterol Sulfate Inhaler - 2 inhaler PO Q4HWA 12/18/18 Ibuprofen 800 mg PO PRN PRN 12/18/18 Multivit ([facility] Formulary) 1 tablet PO DAILY 12/18/18 Albuterol Sulfate Inhaler - [Ventolin Hfa Inhaler -] 1 - 2 inh PO Q4H PRN #1 inhaler 12/21/18 Fluticasone Propionate [Flovent Diskus] 2 puff IH BID #1 blst.w.dev 12/21/18 Nifedipine ER [Procardia Xl -] 60 mg PO DAILY 30 Days #30 tab.er.24 12/21/18 Ranitidine HCl [Zantac] 150 mg PO BID 30 Days #60 tablet 12/21/18 - Diagnosis (1) Alcohol dependence with uncomplicated withdrawal Status: Acute (2) Cheek mass Status: Acute (3) Asthma Status: Chronic Qualifiers: Asthma severity: unspecified severity Asthma persistence: intermittent Asthma complication type: uncomplicated Qualified Code(s): J45.20 - Mild intermittent asthma, uncomplicated (4) Cannabis abuse, uncomplicated Status: Chronic (5) Cocaine abuse, uncomplicated Status: Chronic (6) GERD (gastroesophageal reflux disease) Status: Chronic Qualifiers: Esophagitis presence: without esophagitis Qualified Code(s): K21.9 - Gastro -esophageal reflux disease without esophagitis (7) HTN (hypertension) Status: Chronic Qualifiers: Hypertension type: essential hypertension Qualified Code(s): I10 - Essential (primary) hypertension (8) Hypercholesterolemia Status: Chronic (9) Nicotine dependence Status: Chronic Qualifiers: Nicotine product type: cigarettes Substance use status: uncomplicated Qualified Code(s): F17.210 - Nicotine dependence, cigarettes, uncomplicated (10) Insomnia Status: Chronic Qualifiers: Insomnia type: unspecified Qualified Code(s): G47.00 - Insomnia, unspecified (11) Schizophrenia Status: Chronic Qualifiers: Schizophrenia type: unspecified Qualified Code(s): F20.9 - Schizophrenia, unspecified (12) Substance induced mood disorder Status: Chronic - AMA Did Patient Leave Against Medical Advice: No
== END 2018-12-21 13:05 | disposition home or self-care (01) | DRG 774 ==
LOC: YASAS 11:46 → Y3N 23:08
PROVIDERS: ADMIT Surgery; ATTEND Surgery
PROC: HZ2ZZZZ Detoxification Services for Substance Abuse Treatment (ICD-10-PCS; principal; 2018-12-18)
DX: F10.230 Alcohol dependence with withdrawal, uncomplicated (principal); F14.20 Cocaine dependence, uncomplicated; F12.10 Cannabis abuse, uncomplicated; F17.210 Nicotine dependence, cigarettes, uncomplicated; F19.24 Other psychoactive substance dependence with psychoactive substance-induced mood disorder; F25.9 Schizoaffective disorder, unspecified; F41.9 Anxiety disorder, unspecified; G47.00 Insomnia, unspecified; I10 Essential (primary) hypertension; E78.5 Hyperlipidemia, unspecified; K21.9 Gastro-esophageal reflux disease without esophagitis; R22.0 Localized swelling, mass and lump, head; Z86.19 Personal history of other infectious and parasitic diseases
CPT/HCPCS: 36415; 80053; 81003; 85027; 86593; 93005; 93010; 94640